=== PATIENT | female | born 1955 | race Caucasian/White ===

== ENCOUNTER 2019-12-24 13:05 | Outpatient (REF) | payer MEDICARE, MEDICAID, SELFPAY ==
--- NOTE | 2019-12-24 13:07 | MR_ITS ---
EXAMINATION: MRI ABDOMEN WITH AND WITHOUT CONTRAST CLINICAL INFORMATION: ADRENAL ADENOMA, UNSPEC LATERALITY, ASSESS B/L ADRENALS COMPARISON: Directly compared to the 09/05/2019 CT scan TECHNIQUE: Multiple routine MRI sequences through the abdomen were obtained on a high-field 1.5Tesla MRI. Pre-and postcontrast images with 5.5 mL of Gadavist intravenous contrast were obtained. This included a dynamic contrast-enhanced technique. Images are degraded by patient's difficulty with breath-holding resulting in motion artifact on most of the sequences FINDINGS: Visualized lung bases are unremarkable although only partially seen on the study. T2 bright cysts are seen in posterior segment 7 of the liver and anterior segment 3 of the liver. These do not demonstrate any significant enhancement. No suspicious hepatic lesion. Visualized pancreas and spleen are unremarkable. There is oval fullness to the right adrenal gland measuring 2.2 x 1.4 cm in size. Unfortunately this does not demonstrate any significant signal loss on out of phase imaging to suggest intra-Voxel fat. Contralateral left adrenal gland is full but again without significant signal dropout. T2 bright nonenhancing cyst in the lower pole of the right kidney. On the large [id number] localizing image there is a suggestion of a multi fibroid uterus partially seen. MR/MR abdomen wo/w con IMPRESSION: The right adrenal nodule has not significantly changed in size when compared to the prior CT scans. Unfortunately this does not demonstrate any significant signal loss on the out of phase imaging and does not satisfy MRI criteria for a lipid rich adrenal adenoma. Lipid poor adrenal adenoma could still have this appearance and dedicated dynamic CT scan of the adrenals may be helpful. There is mild fullness to the left adrenal gland but this is nonspecific. Incidental hepatic and right renal cyst noted.
[2019-12-24 14:10] LABS: Blood Urea Nitrogen 15 mg/dL (9-16); Estimated Glomerular Filt Rate > 60
== END 2019-12-24 13:06 | disposition home or self-care (01) ==
LOC: HO.MRI 13:05
PROVIDERS: Internal Medicine; PCP Internal Medicine; Visit Provider Family Medicine Adult Medicine
DX: D35.02 Benign neoplasm of left adrenal gland (principal); D35.01 Benign neoplasm of right adrenal gland; Z00.00 Encounter for general adult medical examination without abnormal findings
CPT/HCPCS: 74183; 82565; 84520; A9585

== ENCOUNTER → 2019-12-25 13:39 | Outpatient (BNVA) | payer MEDICARE, MEDICAID, SELFPAY | PROVIDERS: PCP Internal Medicine; Referring Provider Internal Medicine; Visit Provider Hospitalist | DX: J44.9 Chronic obstructive pulmonary disease, unspecified (principal); G47.33 Obstructive sleep apnea (adult) (pediatric); R01.1 Cardiac murmur, unspecified; Z86.73 Personal history of transient ischemic attack (TIA), and cerebral infarction without residual deficits; Z23 Encounter for immunization | CPT/HCPCS: 90471; 90686; 99212 ==

== ENCOUNTER 2020-01-14 21:05 | Inpatient (IN) | payer MEDICARE, MEDICAID, SELFPAY ==
[2020-01-14 21:07] VITALS: BP 266/139; PULSE 109; RESP 24; O2SAT 99; BMI 29.8
--- NOTE | 2020-01-14 21:15 | PC.NURSE ---
triage amended. family now reporting that she had slurred speech at 2100. reported after completing triage note. neuro exam abnormal but otherwise baseline per family member. Called back and notified battery charger.
--- NOTE | 2020-01-14 21:23 | ECG_ITS ---
Test Reason : STROKE Blood Pressure : / mmHG Vent. Rate : 087 BPM Atrial Rate : 087 BPM P-R Int : 154 ms QRS Dur : 078 ms QT Int : 434 ms P-R-T Axes : 033 -19 035 degrees QTc Int : 522 ms Normal sinus rhythm Possible Left atrial enlargement Left ventricular hypertrophy Cannot rule out Septal infarct (cited on or before 14-JAN-2020) Prolonged QT Abnormal ECG When compared with ECG of 14-JAN-2020 22:34, Premature ventricular complexes are no longer Present Questionable change in initial forces of Septal leads Referred By: Kassidy Cedeno Electronically Signed By:TRISTIAN HENRIQUEZ MD
--- NOTE | 2020-01-14 21:23 | CT_ITS ---
EXAMINATION: CT HEAD WITHOUT CONTRAST (STROKE PROTOCOL) CLINICAL INFORMATION: Stroke protocol. COMPARISON: CT head 04/08/2019 TECHNIQUE: Contiguous axial imaging was performed from the skull base to vertex without intravenous administration of contrast. This CT examination was performed using dose optimization techniques as appropriate, variously including the following: *Automated exposure control *Adjustment of mA and/or kV according to patient size (this includes techniques or standardized protocols for targeted exams where dose is matched to indication/reason for exam; i.e. extremities or head) *Use of iterative reconstruction technique DLP: 682 mGy-cm FINDINGS: There is no evidence of acute intracranial hemorrhage or territorial infarction. No abnormal mass effect or midline shift is seen. No extra-axial fluid collections are identified. There is a chronic infarct in the right cerebellar hemisphere inferiorly. There is a chronic infarct in left gangliocapsular structures with ex vacuo dilatation of the body of the left lateral ventricle. Moderate chronic white matter microangiopathic changes noted. There is ex vacuo dilatation of the ventricles with moderate generalized parenchymal volume loss. The osseous structures and soft tissues are normal. The mastoid air cells and visualized portions of the paranasal sinuses are well aerated. CT/CT head for stroke IMPRESSION: No acute intracranial pathology. This critical result was discussed with Kassidy Orona 01/14/2020, 9:43 PM. It was ascertained that the content and urgency of the report was understood at the time of direct communication.
--- NOTE | 2020-01-14 21:24 | CT_ITS ---
EXAMINATION: CT ANGIOGRAM HEAD CT ANGIOGRAM NECK CLINICAL INFORMATION: Large vessel occlusion. Stroke. COMPARISON: CT head from 01/14/2020. TECHNIQUE: Initial noncontrast intelligence consultant imaging of the head and neck was performed. Comparison is made with noncontrast head CT from earlier today. Test bolus sequences followed by intravenous administration 70 mL of Omnipaque 350. Helical imaging was performed in the axial plane from the aortic arch to the skull vertex. Delayed postcontrast imaging of the head was also performed. The data was processed at the lead nuclear medicine technologist's workstation for generation of MIP sequences. Angled MIPs and volume rendered reformatted images were also generated at an offline 3D workstation. Stenoses are assessed in accordance with NASCET criteria unless otherwise indicated. DLP: 1392 mGy-cm FINDINGS: CT Head: There is no evidence of acute intracranial hemorrhage or edematous territorial infarction. Chronic encephalomalacia of the left centrum semiovale/ragland radiata and right cerebellar hemisphere. Chronic lacunar infarcts of the left caudate head, lentiform nucleus, and thalamus. A few foci of hypoattenuation in the periventricular and deep white matter are consistent with mild microangiopathy. Pedraza-white matter differentiation is preserved. Ex vacuo dilatation of the left lateral ventricle. Otherwise, proportional prominence of the ventricles and sulcal spaces without evidence of obstructive hydrocephalus. No abnormal mass effect or midline shift. No extra-axial fluid collections. No pathologic intra-axial enhancement or regional oligemia. No acute soft tissue or osseous abnormalities. Mild mucosal thickening of the paranasal sinuses. Rightward nasal septal deviation. The mastoid air cells and middle ear cavities remain well aerated. Periapical lucencies associated with the bilateral maxillary molars and mandibular right-sided molars. CT Neck: The thyroid gland and remaining cervical soft tissues are within normal limits. Moderate multilevel degenerative spondyloarthropathy of the cervical spine. There is moderate degenerative disc disease at C4-C5 and C5-C6 with disc-osteophyte complexes. Facet and uncovertebral joint arthropathy leads to osseous encroachment on the neural foramina at C4-C5 and C5-C6. CT Upper Chest: The visualized lung apices and upper mediastinum are within normal limits. Neck CTA: Exam is moderately motion degraded. Aortic Arch: Normal contour and caliber with mild calcific atherosclerotic. Classic 3 vessel branching pattern of the aortic arch. Great Vessel Origins: No significant stenosis of the branch origins. Right Common Carotid Artery: Normal opacification without focal stenosis or occlusion. Cervical Right Internal Carotid Artery: Mild calcific atherosclerotic disease of the carotid bulb and proximal internal carotid artery without flow-limiting stenosis. The cervical segment of the right MARY is patent but diminutive relative to the contralateral side. Left Common Carotid Artery: Normal opacification without focal stenosis or occlusion. Cervical Left Internal Carotid Artery: Mild calcific atherosclerotic disease of the carotid bulb and proximal internal carotid artery without flow-limiting stenosis. Cervical Right Vertebral Artery: Calcific atherosclerotic disease causes moderate stenosis of the origin. The V2 and V3 segments are relatively diminutive but otherwise normally opacified. Cervical Left Vertebral Artery: Dominant. Calcific atherosclerotic disease causes moderate stenosis of the origin. Otherwise, normal opacification without focal stenosis or occlusion. Brain CTA: Intracranial Internal Carotid Arteries: Calcific atherosclerotic disease of the intracranial internal carotid arteries bilaterally. Moderate irregularity of the petrous segment of the right MARY. Moderate to high-grade stenosis of the cavernous and paraophthalmic segment of the right ICA. Relative reconstitution of the supraclinoid segment of the right ICA. Calcific atherosclerotic disease causes mild to moderate narrowings of the intracranial left ICA (most notable stenosis of the paraophthalmic segment). 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 Right Anterior Cerebral Artery: Mild irregularity of the A1 segment. There appears to be mild to moderate small vessel collateralization along the distal branches. Otherwise, relatively normal opacification of the distal segments of the MARY. Left Anterior Cerebral Artery: Mild irregularity of the A1 segment. There appears to be mild to moderate small vessel collateralization along the distal branches. Otherwise, relatively normal opacification of the distal segments of the MRAY. Anterior Communicating Artery: Normal. Right Middle Cerebral Artery: Mild to moderate irregularity of the M1 segment without occlusion. Mild irregularity of the distal branches. Left Middle Cerebral Artery: Mild to moderate irregularity of the M1 segment without occlusion. Mild irregularity of the distal branches. Right Vertebral Artery: Multifocal high-grade narrowings of the V4 segment. Relatively normal opacification of the proximal segments of the posterior inferior cerebellar artery. Left Vertebral Artery: The proximal V4 segment demonstrates mild narrowings but is otherwise normally opacified. Moderate to high-grade stenosis of the distal V4 segment. The posterior inferior cerebellar artery is not well opacified; however, there is no CT evidence of acute occlusion. Basilar Artery: High-grade stenosis of the proximal basilar artery. Mild irregularity of the mid and distal basilar artery. Normal appearance of the proximal superior cerebellar arteries. Right Posterior Cerebral Artery: Mild to moderate irregularity of the P1 segment. The distal segments remain opacified with mild irregularity. Left Posterior Cerebral Artery: Moderate irregular narrowing of the P1 segment. Moderate irregular narrowing of the P2 segment. The distal branches remain opacified with mild irregularity. Normal opacification of the superior sagittal, straight, transverse, and sigmoid sinuses. CT/CT angio head neck stroke IMPRESSION: 1. No evidence of acute intracranial hemorrhage or edematous territorial infarction. 2. Chronic encephalomalacia of the left greater than right centrum semiovale/ragland radiata and right cerebellar hemisphere. Chronic lacunar infarcts of the left-sided deep nuclei. 3. CTA of the head and neck without proximal occlusion. However, there are multifocal moderate to high-grade irregular narrowings of the anterior and posterior circulation. In the neck, there are moderate stenoses of the origins of the vertebral arteries. Intracranially, there are moderate to high-grade stenoses of the right greater than left ICAs. Mild to moderate irregular narrowings of the A1 and M1 segments bilaterally. Moderate to high-grade irregular narrowings of the bilateral vertebral and proximal basilar arteries. Moderate irregular narrowings of the left greater than right P1 and P2 segments. Overall, findings are suspicious for advanced intracranial atherosclerotic disease that would be prone to perfusion insufficiencies in the setting of blood pressure changes. 4. 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 This critical result was discussed with Dr. Cedeno at 22:25 on 01/14/2020 and it was ascertained that the content and urgency of the report was understood at the time of direct communication.
--- NOTE | 2020-01-14 21:27 | ED_ITS ---
HPI - General Adult General Chief complaint: General Medical Stated complaint: hi bp Time Seen by Provider: 01/14/20 21:22 Related Data Home Medications Medication Instructions Recorded Confirmed amlodipine 5 mg tablet 5 mg PO DAILY 12/25/19 12/25/19 aspirin 81 mg tablet,delayed 81 mg PO DAILY 12/25/19 12/25/19 release atorvastatin 20 mg tablet 20 mg PO DAILY 12/25/19 12/25/19 carvedilol 12.5 mg tablet 12.5 mg PO BID 12/25/19 12/25/19 dexamethasone 1 mg tablet 1 mg PO BEDTIME 12/25/19 12/25/19 dextran 70-hypromellose (PF) 0.1 drp OPHTHALMIC (EYE) 12/25/19 12/25/19 %-0.3 % eye drops in a dropperette furosemide 20 mg tablet 20 mg PO DAILY 12/25/19 12/25/19 hydralazine 50 mg tablet 50 mg PO BID 12/25/19 12/25/19 ipratropium 0.5 mg-albuterol 3 mg 3 ml INHALATION Q6H 12/25/19 12/25/19 (2.5 mg base)/3 mL nebulization soln isosorbide mononitrate 30 mg 30 mg PO QAM 12/25/19 12/25/19 tablet,extended release 24 hr losartan 100 mg tablet 100 mg PO DAILY 12/25/19 12/25/19 Allergies Allergy/AdvReac Type Severity Reaction Status Date / Time No Known Allergies Allergy Verified 12/25/19 14:03 [No Known Allergies*] [facility] Past Medical History Medical History (Updated 12/25/19 @ 14:28 by Stefan Beckman MD) COPD (chronic obstructive pulmonary disease) CVA (cerebral vascular accident) Murmur, cardiac YANI (obstructive sleep apnea) Social History Social History (Updated 12/25/19 @ 14:02 by Juli Falcon MA) Smoking Status: Never smoker Advance Directives: No Advance Directives Information Provided: No Physical Exam Vital Signs: Vital Signs: Last Vital Signs Pulse 109 H 01/14/20 21:07 Resp 24 H 01/14/20 21:07 BP 266/139 H 01/14/20 21:07 Pulse Ox 99 01/14/20 21:07 Body Mass Index 29.8 NIH Stroke Scale Internal: Initial- Upon Arrival Level of Consciousness: Alert Level of Consciousness Commands: Performs both tasks correctly Visual: No visual loss Facial Palsy: Minor paralyis Motor Arm (Right): No drift Motor Arm (Left): No drift Motor Leg (Right): No drift Motor Leg (Left): No drift Limb Ataxia: Present in one limb Discharge Plan Discharge Prescriptions: No Action dexamethasone 1 mg tablet 1 mg PO BEDTIME RF: 0 losartan 100 mg tablet 100 mg PO DAILY RF: 0 furosemide 20 mg tablet 20 mg PO DAILY RF: 0 amlodipine 5 mg tablet 5 mg PO DAILY RF: 0 isosorbide mononitrate 30 mg tablet extended release 24 hr 30 mg PO QAM RF: 0 carvedilol 12.5 mg tablet 12.5 mg PO BID RF: 0 atorvastatin 20 mg tablet 20 mg PO DAILY RF: 0 aspirin 81 mg tablet,delayed release (DR/EC) 81 mg PO DAILY RF: 0 ipratropium-albuterol 0.5 mg-3 mg(2.5 mg base)/3 mL solution for nebulization 3 ml inhalation Q6H RF: 0 Bion Tears (PF) 0.1-0.3 % dropperette ophthalmic (eye) RF: 0 hydralazine 50 mg tablet 50 mg PO BID RF: 0
[2020-01-14 21:32] LABS: Glucose, Whole Blood 194 mg/dL (60-115)
--- NOTE | 2020-01-14 21:38 | ED.NEUROSD ---
HPI - Neuro Symptoms/Deficit General Chief Complaint: General Medical Stated Complaint: hi bp Time Seen by Provider: 01/14/20 21:22 Source: family ( Daughter) and diplomatic interpreter/translator Mode of arrival: wheelchair Limitations: physical limitation History of Present Illness HPI Narrative: This is a 64-year-old female with significant past medical history of 5 strokes in [place], the last of which was approximately 1 year ago patient came [place] the [place] living with her family. The daughter states that approximately 8:20 p.m. this evening the patient took her blood pressure, which she checks 3 times a day, and was noted to be 180s/116. as per the daughter the patient had been directed that if she was noted to have a high blood pressure she should take her hydralazine, however the daughter was scared and instead gave the patient her scheduled carvedilol 12.5 mg and noted that at 8:40 p.m. patient began having stroke-like symptoms with noted left-sided weakness and eyelid droop. As per the daughter the patient is not on any blood thinners, and is only taking aspirin. Related Data Home Medications Medication Instructions Recorded Confirmed amlodipine 5 mg tablet 5 mg PO DAILY 12/25/19 01/14/20 aspirin 81 mg tablet,delayed 81 mg PO DAILY 12/25/19 01/14/20 release atorvastatin 20 mg tablet 20 mg PO DAILY 12/25/19 01/14/20 carvedilol 12.5 mg tablet 12.5 mg PO BID 12/25/19 01/14/20 dexamethasone 1 mg tablet 1 mg PO BEDTIME 12/25/19 01/14/20 dextran 70-hypromellose (PF) 0.1 1 drp OPHTHALMIC (EYE) QID 12/25/19 01/14/20 %-0.3 % eye drops in a dropperette furosemide 20 mg tablet 20 mg PO DAILY 12/25/19 01/14/20 hydralazine 50 mg tablet 50 mg PO BID 12/25/19 01/14/20 ipratropium 0.5 mg-albuterol 3 mg 3 ml INHALATION Q6H 12/25/19 01/14/20 (2.5 mg base)/3 mL nebulization soln isosorbide mononitrate 30 mg 30 mg PO QAM 11/12/20 12/02/20 tablet,extended release 24 hr losartan 100 mg tablet 100 mg PO DAILY 12/25/19 01/14/20 Allergies Allergy/AdvReac Type Severity Reaction Status Date / Time No Known Allergies Allergy Verified 12/25/19 14:03 [No Known Allergies*] Review of Systems Review of Systems: Pertinent positives and negatives as stated in HPI. [facility] Past Medical History Medical History (Updated 01/14/20 @ 22:39 by Kassidy Cedeno MD) COPD (chronic obstructive pulmonary disease) CVA (cerebral vascular accident) Murmur, cardiac YANI (obstructive sleep apnea) Social History Social History (Updated 12/25/19 @ 14:02 by Juli Falcon MA) Alcohol intake: never Smoking Status: Never smoker Use of substances other than those prescribed or required for medical reasons: No Advance Directives: No Advance Directives Information Provided: No Physical Exam Vital Signs: Vital Signs: Last Vital Signs Pulse 96 01/15/20 00:00 Resp 20 01/15/20 00:00 BP 164/94 H 01/15/20 00:00 Pulse Ox 98 01/15/20 00:00 Body Mass Index 29.8 VITAL SIGNS: Reviewed. GENERAL: Well developed, well nourished, in no acute distress. HEAD: Normocephalic/atraumatic, EYES: PERRLA, EOMI intact without pain, no nystagmus/pallor/icterus noted EARS: Ext canals without abnormality, TMs non-bulging and non-erythematous NOSE: Nares patent bilateral OROPHARYNX: no oral lesions noted, posterior pharynx clear and non-erythematous without noted tonsillar enlargement/erythema/exudates NECK: Supple, no adenopathy LUNGS: Normal breath sounds. No adventitious sounds or accessory muscle use. SpO2<97> CARDIOVASCULAR: Regular rate and rhythm without noted murmurs, no JVD or lower extremity edema. ABDOMEN: Soft, non-tender, non-distended with bowel sounds. No rigidity. No guarding. No palpable masses or hernias noted MUSCULOSKELETAL: No tenderness, deformities, or effusions noted on gross inspection. EXTREMITIES: No cyanosis, clubbing or edema. SKIN: Inspection of the skin reveals no rashes, ulcerations, jaundice, pallor, or petechiae. NEUROLOGIC: Alert please see NIH stroke scale Course Course Course Narrative: This is a 64-year-old female with history and clinical presentation most consistent with likely hypertensive emergency with concomitant neurologic symptoms, however we did work the patient up as a code stroke. On review of all investigations there is no evidence for infection or anemia, no electrolyte abnormalities noted and TSH is within normal limits. Although high sensitivity troponin is noted to be 131 this is likely secondary to her hypertensive emergency as well. Patient will get a 2nd troponin at the 3 hour seamus and currently denies any chest pain and on review EKG although there are noted J-point elevations in V1 /V2 /V3 on repeat EKG these have resolved quite inciting with reduction patient's blood pressure. Chest x-ray is without acute abnormalities and COVID-19 testing is negative. The blood pressure was able to be gradually controlled with a 1 time dose of 5 mg of labetalol, the report on the CTA of head and neck is pretty significant for diffuse atherosclerotic disease affecting bilateral vertebral arteries as well as significant affect on the posterior circulation, so will not attempt to lower blood pressure less than 180s systolic. All this plan was discussed with Dr. Roberts as well. This case was discussed with the inpatient hospitalist who is agreeable for admission. Reevaluation(s) Reevaluation #1: CT head is negative, CTA results are pending, will not allow permissive hypertension at this time because strong suspicion that patient's symptoms are secondary to blood pressure. Time: 21:49 Reevaluation #2: I discussed case with Dr. Roberts who agrees that this is most consistent with hypertensive emergency. No recommendation for tPA. Time: 10:05 MDM - Neuro Symptoms/Deficit Lab Data Result diagrams: 01/14/20 22:30 01/14/20 22:31 Labs: Lab Results 01/14/20 01/14/20 01/14/20 Range/Units 21:23 21:27 22:30 WBC 9.8 (4.8-10.8) X10*3/uL RBC 5.49 (4.20-5.50) X10*6/uL Hgb 13.7 (12.0-16.0) g/dl Hct 43.5 (37-47) % MCV 79.2 L (80-98) fL MCH 25.0 L (27.0-33.0) pg MCHC 31.5 (31.0-35.0) g/dl RDW 14.8 (11.0-16.0) % Plt Count 203 (160-400) X10*3/uL MPV 12.5 H (9.4-12.3) fL Immature Gran % (Auto) 0.2 (0.0-0.4) % Neut % (Auto) 72.9 (45-73) % Lymph % (Auto) 17.8 L (20-40) % [place] % (Auto) 5.5 (2-11) % Eos % (Auto) 2.9 (0-4) % Baso % (Auto) 0.7 (0-2) % Lymph # (Auto) 1.8 (1.2-4.9) X10*3/uL [place] # (Auto) 0.5 (0.1-1.2) X10*3/uL Eos # (Auto) 0.3 (0.0-0.4) X10*3/uL Baso # (Auto) 0.1 (0.0-0.2) X10*3/uL Abs Immat Gran (auto) 0.02 (0.00-0.03) X10*3/uL Absolute Neuts (auto) 7.2 (2.0-8.3) X10*3/uL Absolute Nucleated RBC 0.000 (0.0-0.012) X10*3/uL Nucleated RBC % (auto) 0.0 (0.0-0.2) /100WBC PT (10.8-13.0) SEC Whole Blood PT 12.4 (11.1-13.5) sec INR (0.9-1.1) Whole Blood INR 1.0 (0.9-1.1) APTT (24.1-38.0) SEC Sodium (135-145) mmol/L Potassium (3.3-5.1) mmol/l Chloride (96-108) mmol/L Carbon Dioxide (22-29) mmol/L Anion Gap (12-20) BUN (9-16) mg/dL Creatinine (0.5-1.4) mg/dL Estim Creat Clear Calc Estimated GFR POC Glucose 194 H (60-115) mg/dL Random Glucose (60-115) mg/dL Calcium (8.4-10.2) mg/dL Magnesium (1.6-2.6) mg/dL Total Creatine Kinase (26-140) U/L Troponin I High Sens (<3.5-17.0) ng/L TSH (0.32-4.0) uIU/mL Coronavirus (PCR) (Negative) Influenza Type A (PCR) (Negative) Influenza Type B (PCR) (Negative) RSV RNA Qual (PCR) (Negative) 01/14/20 01/14/20 01/14/20 Range/Units 22:30 22:31 22:31 WBC (4.8-10.8) X10*3/uL RBC (4.20-5.50) X10*6/uL Hgb (12.0-16.0) g/dl Hct (37-47) % MCV (80-98) fL MCH (27.0-33.0) pg MCHC (31.0-35.0) g/dl RDW (11.0-16.0) % Plt Count (160-400) X10*3/uL MPV (9.4-12.3) fL Immature Gran % (Auto) (0.0-0.4) % Neut % (Auto) (45-73) % Lymph % (Auto) (20-40) % [place] % (Auto) (2-11) % Eos % (Auto) (0-4) % Baso % (Auto) (0-2) % Lymph # (Auto) (1.2-4.9) X10*3/uL [place] # (Auto) (0.1-1.2) X10*3/uL Eos # (Auto) (0.0-0.4) X10*3/uL Baso # (Auto) (0.0-0.2) X10*3/uL Abs Immat Gran (auto) (0.00-0.03) X10*3/uL Absolute Neuts (auto) (2.0-8.3) X10*3/uL Absolute Nucleated RBC (0.0-0.012) X10*3/uL Nucleated RBC % (auto) (0.0-0.2) /100WBC PT 11.7 (10.8-13.0) SEC Whole Blood PT (11.1-13.5) sec INR 1.0 (0.9-1.1) Whole Blood INR (0.9-1.1) APTT 34.4 (24.1-38.0) SEC Sodium 138 (135-145) mmol/L Potassium 3.8 (3.3-5.1) mmol/l Chloride 105 (96-108) mmol/L Carbon Dioxide 24 (22-29) mmol/L Anion Gap 13 (12-20) BUN 18 H (9-16) mg/dL Creatinine 0.87 (0.5-1.4) mg/dL Estim Creat Clear Calc 61.5 Estimated GFR > 60 POC Glucose (60-115) mg/dL Random Glucose 171 H (60-115) mg/dL Calcium 8.8 (8.4-10.2) mg/dL Magnesium 1.9 (1.6-2.6) mg/dL Total Creatine Kinase 36 (26-140) U/L Troponin I High Sens (<3.5-17.0) ng/L TSH 1.19 (0.32-4.0) uIU/mL Coronavirus (PCR) (Negative) Influenza Type A (PCR) (Negative) Influenza Type B (PCR) (Negative) RSV RNA Qual (PCR) (Negative) 01/14/20 01/14/20 Range/Units 22:31 22:31 WBC (4.8-10.8) X10*3/uL RBC (4.20-5.50) X10*6/uL Hgb (12.0-16.0) g/dl Hct (37-47) % MCV (80-98) fL MCH (27.0-33.0) pg MCHC (31.0-35.0) g/dl RDW (11.0-16.0) % Plt Count (160-400) X10*3/uL MPV (9.4-12.3) fL Immature Gran % (Auto) (0.0-0.4) % Neut % (Auto) (45-73) % Lymph % (Auto) (20-40) % [place] % (Auto) (2-11) % Eos % (Auto) (0-4) % Baso % (Auto) (0-2) % Lymph # (Auto) (1.2-4.9) X10*3/uL [place] # (Auto) (0.1-1.2) X10*3/uL Eos # (Auto) (0.0-0.4) X10*3/uL Baso # (Auto) (0.0-0.2) X10*3/uL Abs Immat Gran (auto) (0.00-0.03) X10*3/uL Absolute Neuts (auto) (2.0-8.3) X10*3/uL Absolute Nucleated RBC (0.0-0.012) X10*3/uL Nucleated RBC % (auto) (0.0-0.2) /100WBC PT (10.8-13.0) SEC Whole Blood PT (11.1-13.5) sec INR (0.9-1.1) Whole Blood INR (0.9-1.1) APTT (24.1-38.0) SEC Sodium (135-145) mmol/L Potassium (3.3-5.1) mmol/l Chloride (96-108) mmol/L Carbon Dioxide (22-29) mmol/L Anion Gap (12-20) BUN (9-16) mg/dL Creatinine (0.5-1.4) mg/dL Estim Creat Clear Calc Estimated GFR POC Glucose (60-115) mg/dL Random Glucose (60-115) mg/dL Calcium (8.4-10.2) mg/dL Magnesium (1.6-2.6) mg/dL Total Creatine Kinase (26-140) U/L Troponin I High Sens 131.0 H (<3.5-17.0) ng/L TSH (0.32-4.0) uIU/mL Coronavirus (PCR) NEGATIVE (Negative) Influenza Type A (PCR) NEGATIVE (Negative) Influenza Type B (PCR) NEGATIVE (Negative) RSV RNA Qual (PCR) NEGATIVE (Negative) ECG Data Attestation: I personally reviewed and interpreted this ECG as follows: Prior ECG tracings: not available for review Interpretation: Sinus rhythm with occasional PVCs, HR -94, there are mild J-point elevations in V1 /V2 /V3, OR/QRS is within normal limits, QTC is noted to be prolonged. On repeat EKG at 2430: Normal sinus rhythm, HR- 87, these elevations in V1 /V2 /V3 have completely resolved, QTC remains prolonged at 520 to with OR/QRS within normal limits NIH Stroke Scale Internal: Initial- Upon Arrival Level of Consciousness: Alert Level of Consciousness Questions: Answers one question correctly Level of Consciousness Commands: Performs both tasks correctly Best Gaze: Normal Visual: No visual loss Facial Palsy: Minor paralyis ( Baseline on discussion with daughter) Motor Arm (Right): Drift ( baseline on discussion with daughter) Motor Arm (Left): No drift Motor Leg (Right): Drift ( baseline on discussion with daughter) Motor Leg (Left): No drift Limb Ataxia: Present in two limbs ( unilateral, right on discussion with daughter) Sensory: Normal Best Language: No aphasia Dysarthia: Mild to moderate dysarthria ( baseline on discussion with daughter) Extinction and Inattention: No abnormality Score: 7 Discharge Plan Discharge Clinical Impression: Hypertensive emergency, no CHF Patient Disposition: Admitted As Inpatient Interventions: Admission Worksheet (ED) Last Done: 01/15/20 01:02
[2020-01-14] MEDS: iohexoL 350 MG/ML 100 ML INFUS..BTL IV (21:54)
[2020-01-14 21:59] LABS: Prothrombin Time Whole Bld POC 12.4 sec (11.1-13.5)
[2020-01-14] MEDS: Labetalol HCL 100 MG/20 ML VIAL IVPUSH (22:03)
[2020-01-14 22:05] VITALS: BP 228/142; PULSE 93; RESP 18; O2SAT 7
[2020-01-14 22:08] VITALS: BP 225/127; PULSE 96; RESP 16; O2SAT 97
[2020-01-14 22:19] VITALS: PULSE 94
[2020-01-14 22:38] LABS: Basophils Absolute Auto 0.1 X10*3/uL (0.0-0.2); Basophils Percent Auto 0.7 % (0-2); Eosinophils Absolute Auto 0.3 X10*3/uL (0.0-0.4); Eosinophils Percent Auto 2.9 % (0-4); Hematocrit 43.5 % (37-47); Hemoglobin 13.7 g/dl (12.0-16.0); Imm Gran Abs Auto 0.02 X10*3/uL (0.00-0.03); Imm Gran Pct Auto 0.2 % (0.0-0.4); Lymphocytes Absolute Auto 1.8 X10*3/uL (1.2-4.9); Lymphocytes Percent Auto 17.8 % (20-40); MANUAL DIFF FLAG NO; Mean Corpuscular HGB Conc 31.5 g/dl (31.0-35.0); Mean Corpuscular Volume 79.2 fL (80-98); Mean Platelet Volume 12.5 fL (9.4-12.3); Monocytes Absolute Auto 0.5 X10*3/uL (0.1-1.2); Monocytes Percent Auto 5.5 % (2-11); Neutrophils Absolute Auto 7.2 X10*3/uL (2.0-8.3); Neutrophils Percent Auto 72.9 % (45-73); Platelet Count 203 X10*3/uL (160-400); Red Blood Count 5.49 X10*6/uL (4.20-5.50); Red Cell Distribution Width 14.8 % (11.0-16.0); White Blood Count 9.8 X10*3/uL (4.8-10.8)
[2020-01-14 22:45] LABS: Prothrombin Time 11.7 SEC (10.8-13.0)
[2020-01-14 22:47] LABS: Partial Thromboplastin Time 34.4 SEC (24.1-38.0)
[2020-01-14 22:59] LABS: Magnesium 1.9 mg/dL (1.6-2.6)
[2020-01-14 23:00] LABS: Anion Gap 13 (12-20); Blood Urea Nitrogen 18 mg/dL (9-16); Calcium 8.8 mg/dL (8.4-10.2); Carbon Dioxide 24 mmol/L (22-29); Chloride 105 mmol/L (96-108); Creatinine Clr Calc Pharmacy 61.5; Estimated Glomerular Filt Rate > 60; Glucose Random 171 mg/dL (60-115); Potassium 3.8 mmol/l (3.3-5.1); Sodium 138 mmol/L (135-145)
--- NOTE | 2020-01-14 23:01 | XR_ITS ---
EXAMINATION: XR CHEST CLINICAL INFORMATION: Cough COMPARISON: CT chest 04/08/2019 TECHNIQUE: Frontal portable view of the chest was obtained. 11:01 PM FINDINGS: No significant abnormality is noted involving the heart, lungs, mediastinum, bony thorax or soft tissues. XR/XR chest 1V IMPRESSION: Unremarkable examination.
[2020-01-14 23:15] LABS: Influenza A PCR NEGATIVE (Negative); Influenza B PCR NEGATIVE (Negative); Resp Syncy Virus RNA Qual PCR NEGATIVE (Negative); SARS COV2 PCR INHOUSE NEGATIVE (Negative)
[2020-01-14 23:20] LABS: Thyroid Stimulating Hormone 1.19 uIU/mL (0.32-4.0)
[2020-01-14 23:26] LABS: Stroke Lab Use COMPLETE
[2020-01-15] VITALS (16 sets, daily range): BP systolic 96–197; BP diastolic 60–99; PULSE 76–96; RESP 16–20; TEMP 35.8–36.7; O2SAT 95–98; BMI 25.9
--- NOTE | 2020-01-15 00:20 | ECG_ITS ---
Test Reason : STROKE ALERT Blood Pressure : / mmHG Vent. Rate : 094 BPM Atrial Rate : 094 BPM P-R Int : 156 ms QRS Dur : 080 ms QT Int : 412 ms P-R-T Axes : 033 -16 047 degrees QTc Int : 515 ms Sinus rhythm with occasional Premature ventricular complexes Possible Left atrial enlargement Left ventricular hypertrophy Cannot rule out Septal infarct , age undetermined Prolonged QT Abnormal ECG No previous ECGs available Referred By: Kassidy Cedeno Electronically Signed By:TRISTIAN HENRIQUEZ MD
--- NOTE | 2020-01-15 01:21 | PM.IMHP ---
History of Present Illness Date of Service: 01/15/20 Chief Complaint: elevated BP 64 y/o female who presented from home due to elevated BP . Per history provided by the patient and patient's daughter. Today around 8 pm patient was noted to have a reading on BP monitor of 266/60 mmHg for what decision to come to the ED was made. On presentation patient had a STAT CT followed by a CTA head and neck which were negative for an acute intracranial pathology, it is evident significant stenosis and atherosclerosis disease in the posterior circulation of the brain. Vitals at presentation 260/130 mmHg and 109 bpm. Patient was given a total of 3 doses of IV labetalol with improvement of BP to 160/94 and pulse of 96. Initial EKG showed no evidence of any acute ST T wave changes, prolonged QT. Patient given 1 mg IV of magnesium. Neurology was contacted per ED Dr Roberts who does not recommends any further intervention for neurology point of view. Patient has a hx of stroke in the past with right sided hemiparesis and dysarthria. NIH scale on presentation of 7. Decision for admission given for Hypertensive Emergency. Patient was seen and evaluated at the bedside, laying down in bed in no acute distress. Asymptomatic. Denies any chest pain, SOB, nausea, vomiting or fever. BP noted to be 201/90 mmHg. One dose of amlodipine and hydralazine home meds to be given now PO. ROS as above otherwise negative. Physical exam positive for right sided hemiparesis and dysarthria which is patient's baseline. PMHX: HTN, HLP, CVA, YANI, COPD, CHF PSx: none Toxic habits: No hx of alcohol abuse, smoking or IVDA Review of Systems Review of Systems: Yes all other systems are reviewed and are negative [facility] Medical History COPD (chronic obstructive pulmonary disease) CVA (cerebral vascular accident) Murmur, cardiac YANI (obstructive sleep apnea) Functional capacity: independent ambulation Social History Alcohol intake: never Smoking Status: Never smoker Use of substances other than those prescribed or required for medical reasons: No Advance Directives: No Advance Directives Information Provided: No Meds Allergies Allergy/AdvReac Type Severity Reaction Status Date / Time No Known Allergies Allergy Verified 12/25/19 14:03 [No Known Allergies*] Home Medications Medication Instructions Recorded Confirmed Type amlodipine 5 mg tablet 5 mg PO DAILY 12/25/19 01/14/20 History aspirin 81 mg tablet,delayed 81 mg PO DAILY 12/25/19 01/14/20 History release atorvastatin 20 mg tablet 20 mg PO DAILY 12/25/19 01/14/20 History carvedilol 12.5 mg tablet 12.5 mg PO BID 12/25/19 01/14/20 History dexamethasone 1 mg tablet 1 mg PO BEDTIME 12/25/19 01/14/20 History dextran 70-hypromellose (PF) 0.1 1 drp OPHTHALMIC (EYE) QID 12/25/19 01/14/20 History %-0.3 % eye drops in a dropperette furosemide 20 mg tablet 20 mg PO DAILY 12/25/19 01/14/20 History hydralazine 50 mg tablet 50 mg PO BID 12/25/19 01/14/20 History ipratropium 0.5 mg-albuterol 3 mg 3 ml INHALATION Q6H 12/25/19 01/14/20 History (2.5 mg base)/3 mL nebulization soln isosorbide mononitrate 30 mg 30 mg PO QAM 12/25/19 01/14/20 History tablet,extended release 24 hr losartan 100 mg tablet 100 mg PO DAILY 12/25/19 01/14/20 History Physical Exam Vital Signs and Narrative: Vital Signs: Last Vital Signs Pulse 96 01/15/20 00:00 Resp 20 01/15/20 00:00 BP 164/94 H 01/15/20 00:00 Pulse Ox 98 01/15/20 00:00 Body Mass Index 29.8 Const: General: cooperative and comfortable Orientation/consciousness: oriented to person, oriented to place and oriented to time HENMT: Head: Yes normal to inspection Eyes: General: appearance normal, both eyes and all related structures Neck: Yes normal visual inspection Chest: Chest palpation & inspection: normal inspection of the chest Resp: Effort & Inspection: normal respiratory effort Auscultation: clear to auscultation bilaterally Cardio: Jugular venous distension: no JVD Rate: regular rate Rhythm: regular rhythm Heart sounds: S1 normal heart sound present and S2 normal heart sound present GI: Inspection: Yes normal to inspection Skin: General skin exam: no rashes or lesions noted Neuro: General: oriented to person, oriented to place and oriented to time Cranial nerves: Yes Other cranial nerve findings present (dysarthria ) Cognition (Neuro): normal cognition Motor exam (neuro): Other motor observations present (RUE strength of 3/5, RLE 2/5, LLE and LUE 5/5. Sensation preserved ) Results Labs CBC and Chem 7: 01/14/20 22:30 01/14/20 22:31 Labs: Laboratory Results - last 24 hr 01/14/20 01/14/20 01/14/20 21:23 21:27 22:30 MCV 79.2 L MCH 25.0 L MCHC 31.5 RDW 14.8 Plt Count 203 MPV 12.5 H Immature Gran % (Auto) 0.2 Neut % (Auto) 72.9 Lymph % (Auto) 17.8 L [place] % (Auto) 5.5 Eos % (Auto) 2.9 Baso % (Auto) 0.7 Lymph # (Auto) 1.8 [place] # (Auto) 0.5 Eos # (Auto) 0.3 Baso # (Auto) 0.1 Abs Immat Gran (auto) 0.02 Absolute Neuts (auto) 7.2 Absolute Nucleated RBC 0.000 Nucleated RBC % (auto) 0.0 PT Whole Blood PT 12.4 INR Whole Blood INR 1.0 APTT Anion Gap Estim Creat Clear Calc Estimated GFR POC Glucose 194 H Random Glucose Calcium Magnesium Total Creatine Kinase Troponin I High Sens TSH Coronavirus (PCR) Influenza Type A (PCR) Influenza Type B (PCR) RSV RNA Qual (PCR) 01/14/20 01/14/20 01/14/20 22:30 22:31 22:31 MCV MCH MCHC RDW Plt Count MPV Immature Gran % (Auto) Neut % (Auto) Lymph % (Auto) [place] % (Auto) Eos % (Auto) Baso % (Auto) Lymph # (Auto) [place] # (Auto) Eos # (Auto) Baso # (Auto) Abs Immat Gran (auto) Absolute Neuts (auto) Absolute Nucleated RBC Nucleated RBC % (auto) PT 11.7 Whole Blood PT INR 1.0 Whole Blood INR APTT 34.4 Anion Gap 13 Estim Creat Clear Calc 61.5 Estimated GFR > 60 POC Glucose Random Glucose 171 H Calcium 8.8 Magnesium 1.9 Total Creatine Kinase 36 Troponin I High Sens TSH 1.19 Coronavirus (PCR) Influenza Type A (PCR) Influenza Type B (PCR) RSV RNA Qual (PCR) 01/14/20 01/14/20 22:31 22:31 MCV MCH MCHC RDW Plt Count MPV Immature Gran % (Auto) Neut % (Auto) Lymph % (Auto) [place] % (Auto) Eos % (Auto) Baso % (Auto) Lymph # (Auto) [place] # (Auto) Eos # (Auto) Baso # (Auto) Abs Immat Gran (auto) Absolute Neuts (auto) Absolute Nucleated RBC Nucleated RBC % (auto) PT Whole Blood PT INR Whole Blood INR APTT Anion Gap Estim Creat Clear Calc Estimated GFR POC Glucose Random Glucose Calcium Magnesium Total Creatine Kinase Troponin I High Sens 131.0 H TSH Coronavirus (PCR) NEGATIVE Influenza Type A (PCR) NEGATIVE Influenza Type B (PCR) NEGATIVE RSV RNA Qual (PCR) NEGATIVE Imaging Radiologist's Impressions: Impressions Head CT 01/14/20 21:23 IMPRESSION: No acute intracranial pathology. This critical result was discussed with Kassidy [place] 01/14/2020, 9:43 PM. It was ascertained that the content and urgency of the report was understood at the time of direct communication. Head/Neck CTA 01/14/20 21:24 IMPRESSION: 1. No evidence of acute intracranial hemorrhage or edematous territorial infarction. 2. Chronic encephalomalacia of the left greater than right centrum semiovale/ragland radiata and right cerebellar hemisphere. Chronic lacunar infarcts of the left-sided deep nuclei. 3. CTA of the head and neck without proximal occlusion. However, there are multifocal moderate to high-grade irregular narrowings of the anterior and posterior circulation. In the neck, there are moderate stenoses of the origins of the vertebral arteries. Intracranially, there are moderate to high-grade stenoses of the right greater than left ICAs. Mild to moderate irregular narrowings of the A1 and M1 segments bilaterally. Moderate to high-grade irregular narrowings of the bilateral vertebral and proximal basilar arteries. Moderate irregular narrowings of the left greater than right P1 and P2 segments. Overall, findings are suspicious for advanced intracranial atherosclerotic disease that would be prone to perfusion insufficiencies in the setting of blood pressure changes. 4. 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 This critical result was discussed with Dr. Cedeno at 22:25 on 01/14/2020 and it was ascertained that the content and urgency of the report was understood at the time of direct communication. Chest X-Ray 01/14/20 23:01 IMPRESSION: Unremarkable examination. 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 Elevated likely secondary to demand ischemia repeat EKG in the am for prolonged QT Cardiology consult in the am (2) COPD (chronic obstructive pulmonary disease): Qualifiers: COPD type: chronic bronchitis Chronic bronchitis type: simple Qualified Code(s): J41.0 - Simple chronic bronchitis Status: Acute continue with home meds contact PCP in the am for chronic dexamethasone daily with no clear indication (3) Hyperlipidemia: Status: Acute continue with statin home dose (4) CHF (congestive heart failure): Status: Acute continue with lasix home dose
[2020-01-15] MEDS: Magnesium Sulfate/D5W 1 GM/100 ML PIGGYBACK IV (02:19)
[2020-01-15] MEDS: Heparin Sodium,Porcine 5,000 UNIT/ML VIAL 5000 UNIT SUBCUT ×3 (02:20→18:23)
[2020-01-15] MEDS: Isosorbide Mononitrate 30 MG TAB.ER.24H PO ×2 (02:22→08:49)
[2020-01-15 02:46] LABS: Troponin-I High Sensitivity 125.8 ng/L (<3.5-17.0)
--- NOTE | 2020-01-15 06:00 | CA_ITS ---
Transthoracic Echocardiogram Patient (Last, First, Middle): Zohra Carey, Gender: Female Date of : 1955 Age: 64 Procedure Date: 01/15/2020 Procedure Type: Transthoracic [place] [facility] [place]: 157.48 cm Weight: 63.96 kg BSA: 1.65 m2 Heart Rate: bpm BP: 160 / 63 mmHg Biodiesel Plant Manager: DSGabriel Referring MD: Tonia Reynolds MD Production Line Manager: Mohit De Leon MD Symptoms: elevated troponin Study Quality: Technically Difficult ECG Rhythm: Sinus Conclusions: - 1. Hyperdynamic LV systolic function with LVEF of greater than 70% with impaired relaxation filling pattern. There is increased gradient across the LVOT, not sure as to the level of obstruction. 2. Mild to moderate eccentric mitral regurgitation 3. Normal RV systolic pressure 4. No pericardial effusion Findings Left Ventricle Normal left ventricular cavity size. There is severely increased left ventricular wall thickness. The left ventricular systolic function is hyperdynamic. The visually estimated ejection fraction is >70%. Spectral Doppler is indicative of an impaired relaxation filling pattern. E/E prime ratio is between 8 and 15 consistent with indeterminate filling pressures. There is increased gradient across the left ventricular outflow tract, there is mid cavitary obliteration. The level of obstruction is unclear based on this study but appears to be at the mid cavitary level. Peak gradient is 28 mm Hg, lower than calculated on last study, could be underestimated on this study. Right Ventricle The right ventricle was not well visualized. Atria The left atrium is mildly dilated. Interatrial shunt cannot be excluded. The right atrium was not well visualized. Aortic Valve The aortic valve was not well visualized. There is no aortic valve stenosis. There is no aortic valve regurgitation. Mitral Valve There is mild anterior and posterior mitral leaflet thickening. There is mild to moderate mitral valve regurgitation. The mitral regurgitation jet is directed posteriorly. There is no mitral valve stenosis. Pulmonic Valve The pulmonic valve was not well visualized. Tricuspid Valve The tricuspid valve was not well visualized. There is mild tricuspid valve regurgitation. The right ventricular systolic pressure is normal. The right ventricular systolic pressure is 17 mmHg. There is no evidence of pulmonary hypertension. Great Vessels All visible segments of the aorta are normal in size. The pulmonary artery was not well visualized. Venous The inferior vena cava is normal in size and collapses greater than 50% with inspiration. Pericardium/Pleural There is no evidence of pericardial effusion. Prior Study Comparison No significant change compared to prior study dated: 03/18/2019. Measurements 2D Linear Measurements IVSd: 1.65 0.6-0.9/0.6-1.0 cm LVIDd: 3.29 3.9-5.3/4.2-5.9 cm LVIDd Index: 1.99 2.4-3.2/2.2-3.1 cm/m2 LVIDs: 2.01 2.0-3.6 cm LVPWd: 1.24 0.7-1.1 cm Ao Root: 2.70 2.1-3.5 cm LA Diam: 3.90 2.7-3.8/3.0-4.0 cm LAIDs Index: 2.36 1.5-2.3 cm/m2 LV Mass: 208.43 67-162/88-224 g LV Mass Index: 126.32 43-95/49-115 g/m2 LVOT Diam: 1.90 3.0+(-)1.3 cm Mitral Valve MV Pk E: 0.67 MV PK A: 1.20 MV Decel Time: 121.00 E/A: 0.60 E'Lateral: 8.22 E'Medial: 3.58 E/E' Med: 18.80 E/E' Lat: 8.20 PHT: 36.00 MVA PHT: 6.11 Decel King: 5.55 Aortic Valve AoV Pk Lit: 1.29 AoV Pk Grad: 7.00 LVOT LVOT Pk Lit: 1.19 LVOT Mn Lit: 0.76 LVOT VTI: 0.20 LVOT Pk Grad: 6.00 LVOT Mn Grad: 3.00 LVOT Diam: 1.90 LVOT Area: 2.84 Diastolic Function MV Pk E: 0.67 MV Pk A: 1.20 E/A: 0.60 E'Medial: 3.58 E/E' Med: 18.80 E' Laterial: 8.22 E/E' Lat: 8.20 Tricuspid Valve TR Pk Lit: 1.89 TR Pk Grad: 14.00 RA Press: 3.00 RVSP: 17.00 Great Vessels Aorta Ao Root-2D: 2.70 2.0-3.7 cm Ao Asc: 3.00 2.1-3.4 cm Updated in Other Vendor System with Status of Final Mohit DeL eon MD electronically signed on 01/15/2020 11:58:44 AM with status of Final
[2020-01-15 06:28] LABS: Hematocrit 41.7 % (37-47); MANUAL DIFF FLAG SCAN; Mean Platelet Volume 13.5 fL (9.4-12.3); Monocytes Absolute Auto 0.6 X10*3/uL (0.1-1.2); SCAN SMEAR FLAG 1
[2020-01-15 06:30] LABS: Basophils Absolute Auto 0.1 X10*3/uL (0.0-0.2); Basophils Percent Auto 0.9 % (0-2); Eosinophils Absolute Auto 0.4 X10*3/uL (0.0-0.4); Eosinophils Percent Auto 3.9 % (0-4); Hemoglobin 13.1 g/dl (12.0-16.0); Imm Gran Abs Auto 0.03 X10*3/uL (0.00-0.03); Imm Gran Pct Auto 0.3 % (0.0-0.4); Lymphocytes Absolute Auto 2.3 X10*3/uL (1.2-4.9); Lymphocytes Percent Auto 22.3 % (20-40); Mean Corpuscular HGB Conc 31.4 g/dl (31.0-35.0); Mean Corpuscular Volume 79.7 fL (80-98); Monocytes Percent Auto 5.8 % (2-11); Neutrophils Absolute Auto 6.9 X10*3/uL (2.0-8.3); Neutrophils Percent Auto 66.8 % (45-73); Platelet Count 183 X10*3/uL (160-400); Red Blood Count 5.23 X10*6/uL (4.20-5.50); Red Cell Distribution Width 14.9 % (11.0-16.0); White Blood Count 10.3 X10*3/uL (4.8-10.8)
[2020-01-15 06:46] LABS: PLT ABN DIST 1
[2020-01-15 06:50] LABS: SLIDE REVIEW VERIFIED
[2020-01-15 06:54] LABS: Anion Gap 11 (12-20); Blood Urea Nitrogen 17 mg/dL (9-16); Calcium 8.5 mg/dL (8.4-10.2); Carbon Dioxide 26 mmol/L (22-29); Chloride 106 mmol/L (96-108); Creatinine Clr Calc Pharmacy 64.1; Estimated Glomerular Filt Rate > 60; Glucose Random 105 mg/dL (60-115); Sodium 139 mmol/L (135-145)
[2020-01-15] MEDS: Albuterol/Iprat 2.5/0.5MG 3 ML AMPUL.NEB INHALE ×2 (07:19→15:22)
[2020-01-15] MEDS: Losartan Potassium 50 MG TABLET 100 MG PO (08:49)
[2020-01-15] MEDS: Furosemide 20 MG TABLET PO (08:49)
[2020-01-15] MEDS: hydrALAZINE HCl 50 MG TABLET PO (08:49)
[2020-01-15] MEDS: Aspirin Enteric Coated 81 MG TABLET.DR PO (08:50)
[2020-01-15] MEDS: carvediloL 12.5 MG TABLET PO (08:50)
[2020-01-15] MEDS: amLODIPine Besylate 5 MG TABLET PO (08:50)
[2020-01-15] MEDS: 0.9 % Sodium Chloride Flush 3 ML SYRINGE IVFLUSH ×3 (08:50→23:40)
--- NOTE | 2020-01-15 10:06 | P.CONCA_ITS ---
History of Present Illness History of Present Illness Date of Service: 01/15/20 Requesting physician: Lee Browne Consult reason: hypertension Chief complaint: Hypertensive Emergency Narrative: Thank you for inviting us in consult on Zohra for management of her hypertension as well as abnormal troponin. History was obtained with help of oil burner installer at bedside. Despite the oil burner installer the history is limited. Patient came in she says because she was having altered speech. She was also noted to be markedly hypertensive at home which was confirmed in the emergency room. She was then treated for hypertensive emergency. Subsequent workup has revealed evidence of old strokes as well as significant intracranial vascular disease. She says the symptoms of speech impediment are now gone. She has no other neurologic symptoms. She did not have any chest discomfort or shortness of breath. She has no clear history of current orthopnea or PND. No fever or chills. Her blood pressure continues to remain elevated. Troponin were minimally elevated and have remained flat. She had an echocardiogram in March which showed hyperdynamic LV systolic function with severe left ventricular hypertrophy with mid cavitary obstruction. Sleep study shows severe sleep apnea, not sure whether she has received the CPAP therapy. Review of Systems Review of Systems: Yes Unobtainable due to mental condition Cardiovascular: Cardiovascular: Denies chest pain and Denies dyspnea Respiratory: Respiratory: Denies dyspnea PMFSH Past Medical History Medical History COPD (chronic obstructive pulmonary disease) CVA (cerebral vascular accident) Hypertensive hypertrophic cardiomyopathy Murmur, cardiac YANI (obstructive sleep apnea) Functional capacity: independent ambulation Social History Social History Household Members: Children Household Members Other:: pt lives with daughter Housing: Apartment Do you presently have visiting nurse or other home services: No Alcohol intake: never Smoking Status: Never smoker Use of substances other than those prescribed or required for medical reasons: No Have you been hit, kicked, punched, or otherwise hurt by someone within the past year? If so, by whom?: No Do you feel safe in your current relationship?: No Current Relationship Is there a partner from a previous relationship who is making you feel unsafe now?: No Are you made to feel afraid or neglected: No Advance Directives: No Advance Directives Information Provided: No Do you have thoughts of harming others: None Do you have a plan to hurt others: No Plan Recently lost weight without trying: No service: No Current occupational status: disabled Meds Allergies Allergy/AdvReac Type Severity Reaction Status Date / Time No Known Allergies Allergy Verified 12/25/19 14:03 [No Known Allergies*] Home Medications Medication Instructions Recorded Confirmed Type amlodipine 5 mg tablet 5 mg PO DAILY 12/25/19 01/14/20 History aspirin 81 mg tablet,delayed 81 mg PO DAILY 12/25/19 01/14/20 History release atorvastatin 20 mg tablet 20 mg PO DAILY 12/25/19 01/14/20 History carvedilol 12.5 mg tablet 12.5 mg PO BID 12/25/19 01/14/20 History dextran 70-hypromellose (PF) 0.1 1 drp OPHTHALMIC (EYE) QID 12/25/19 01/14/20 History %-0.3 % eye drops in a dropperette furosemide 20 mg tablet 20 mg PO DAILY 12/25/19 01/14/20 History hydralazine 50 mg tablet 50 mg PO BID 12/25/19 01/14/20 History ipratropium 0.5 mg-albuterol 3 mg 3 ml INHALATION Q6H 12/25/19 01/14/20 History (2.5 mg base)/3 mL nebulization soln isosorbide mononitrate 30 mg 30 mg PO QAM 12/25/19 01/14/20 History tablet,extended release 24 hr losartan 100 mg tablet 100 mg PO DAILY 12/25/19 01/14/20 History Physical Exam Vital Signs: Vital Signs: Last Vital Signs Temp 97.8 F 01/15/20 08:00 Pulse 80 01/15/20 08:50 Resp 18 01/15/20 08:00 BP 184/96 H 01/15/20 08:50 Pulse Ox 95 01/15/20 08:00 Body Mass Index 25.9 Const: General: no acute distress, alert and awake Orientation/consciousness: oriented to person and oriented to place Limitations: other limitations (Bed-bound) HENMT: Head: Yes normocephalic and Yes atraumatic Eyes: General: appearance normal, both eyes and all related structures Neck: Neck: Yes trachea midline, Yes supple and Yes no JVD Chest: Chest palpation & inspection: normal inspection of the chest Resp: Effort & Inspection: decreased respiratory effort Auscultation: clear to auscultation bilaterally Cardio: Palpation: abnormal PMI displaced PMI and heave Rate: regular rate Rhythm: regular rhythm Heart sounds: S1 normal heart sound present, S2 normal heart sound present, Murmur heart sound present (Ejection systolic murmur best heard in the left parasternal area) and Other heart sounds present (S4 present) GI: Auscultation: normal bowel sounds Skin: General skin exam: no rashes or lesions noted Neuro: General: oriented to person, oriented to place and other (Right hemiplegia) Extrem: General: Yes no clubbing, cyanosis or edema Results Labs and Meds Result diagrams: 01/15/20 05:33 01/15/20 05:33 Lab results: Laboratory Results - last 24 hr 01/14/20 01/14/20 01/14/20 21:23 21:27 22:30 WBC 9.8 RBC 5.49 Hgb 13.7 Hct 43.5 MCV 79.2 L MCH 25.0 L MCHC 31.5 RDW 14.8 Plt Count 203 MPV 12.5 H Immature Gran % (Auto) 0.2 Neut % (Auto) 72.9 Lymph % (Auto) 17.8 L [place] % (Auto) 5.5 Eos % (Auto) 2.9 Baso % (Auto) 0.7 Lymph # (Auto) 1.8 [place] # (Auto) 0.5 Eos # (Auto) 0.3 Baso # (Auto) 0.1 Abs Immat Gran (auto) 0.02 Absolute Neuts (auto) 7.2 Absolute Nucleated RBC 0.000 Nucleated RBC % (auto) 0.0 Smear Tech's Comments PT Whole Blood PT 12.4 INR Whole Blood INR 1.0 APTT Sodium Potassium Chloride Carbon Dioxide Anion Gap BUN Creatinine Estim Creat Clear Calc Estimated GFR POC Glucose 194 H Random Glucose Calcium Magnesium Total Creatine Kinase Troponin I High Sens TSH Coronavirus (PCR) Influenza Type A (PCR) Influenza Type B (PCR) RSV RNA Qual (PCR) 01/14/20 01/14/20 01/14/20 22:30 22:31 22:31 WBC RBC Hgb Hct MCV MCH MCHC RDW Plt Count MPV Immature Gran % (Auto) Neut % (Auto) Lymph % (Auto) [place] % (Auto) Eos % (Auto) Baso % (Auto) Lymph # (Auto) [place] # (Auto) Eos # (Auto) Baso # (Auto) Abs Immat Gran (auto) Absolute Neuts (auto) Absolute Nucleated RBC Nucleated RBC % (auto) Smear Tech's Comments PT 11.7 Whole Blood PT INR 1.0 Whole Blood INR APTT 34.4 Sodium 138 Potassium 3.8 Chloride 105 Carbon Dioxide 24 Anion Gap 13 BUN 18 H Creatinine 0.87 Estim Creat Clear Calc 61.5 Estimated GFR > 60 POC Glucose Random Glucose 171 H Calcium 8.8 Magnesium 1.9 Total Creatine Kinase 36 Troponin I High Sens TSH 1.19 Coronavirus (PCR) Influenza Type A (PCR) Influenza Type B (PCR) RSV RNA Qual (PCR) 01/14/20 01/14/20 01/15/20 22:31 22:31 02:13 WBC RBC Hgb Hct MCV MCH MCHC RDW Plt Count MPV Immature Gran % (Auto) Neut % (Auto) Lymph % (Auto) [place] % (Auto) Eos % (Auto) Baso % (Auto) Lymph # (Auto) [place] # (Auto) Eos # (Auto) Baso # (Auto) Abs Immat Gran (auto) Absolute Neuts (auto) Absolute Nucleated RBC Nucleated RBC % (auto) Smear Tech's Comments PT Whole Blood PT INR Whole Blood INR APTT Sodium Potassium Chloride Carbon Dioxide Anion Gap BUN Creatinine Estim Creat Clear Calc Estimated GFR POC Glucose Random Glucose Calcium Magnesium Total Creatine Kinase Troponin I High Sens 131.0 H 125.8 H TSH Coronavirus (PCR) NEGATIVE Influenza Type A (PCR) NEGATIVE Influenza Type B (PCR) NEGATIVE RSV RNA Qual (PCR) NEGATIVE 01/15/20 01/15/20 05:33 05:33 WBC 10.3 RBC 5.23 Hgb 13.1 Hct 41.7 MCV 79.7 L MCH 25.0 L MCHC 31.4 RDW 14.9 Plt Count 183 MPV 13.5 H Immature Gran % (Auto) 0.3 Neut % (Auto) 66.8 Lymph % (Auto) 22.3 [place] % (Auto) 5.8 Eos % (Auto) 3.9 Baso % (Auto) 0.9 Lymph # (Auto) 2.3 [place] # (Auto) 0.6 Eos # (Auto) 0.4 Baso # (Auto) 0.1 Abs Immat Gran (auto) 0.03 Absolute Neuts (auto) 6.9 Absolute Nucleated RBC 0.000 Nucleated RBC % (auto) 0.0 Smear Tech's Comments VERIFIED PT Whole Blood PT INR Whole Blood INR APTT Sodium 139 Potassium 4.0 Chloride 106 Carbon Dioxide 26 Anion Gap 11 L BUN 17 H Creatinine 0.78 Estim Creat Clear Calc 64.1 Estimated GFR > 60 POC Glucose Random Glucose 105 D Calcium 8.5 Magnesium Total Creatine Kinase Troponin I High Sens TSH Coronavirus (PCR) Influenza Type A (PCR) Influenza Type B (PCR) RSV RNA Qual (PCR) IMPRESSION: 1. No evidence of acute intracranial hemorrhage or edematous territorial infarction. 2. Chronic encephalomalacia of the left greater than right centrum semiovale/ragland radiata and right cerebellar hemisphere. Chronic lacunar infarcts of the left-sided deep nuclei. 3. CTA of the head and neck without proximal occlusion. However, there are multifocal moderate to high-grade irregular narrowings of the anterior and posterior circulation. In the neck, there are moderate stenoses of the origins of the vertebral arteries. Intracranially, there are moderate to high-grade stenoses of the right greater than left ICAs. Mild to moderate irregular narrowings of the A1 and M1 segments bilaterally. Moderate to high-grade irregular narrowings of the bilateral vertebral and proximal basilar arteries. Moderate irregular narrowings of the left greater than right P1 and P2 segments. Overall, findings are suspicious for advanced intracranial atherosclerotic disease that would be prone to perfusion insufficiencies in the setting of blood pressure changes. 4. 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 Assessment and Plan (1) Hypertensive emergency, no CHF: Status: Acute Hypertensive emergency with neurologic symptoms. This have resolved with improving blood pressure. However blood pressure remains continue Jennifer significantly elevated. Will need to discuss with Neurology as to the blood pressure targets as she has significant intracranial stenosis. Avoid aggressive correction of her blood pressure as this may lead to cerebral hypoperfusion. Increase carvedilol to 25 mg b.i.d.. Also increase hydralazine to 100 mg b.i.d.. Continue other medications. Unclear as to the reason for her uncontrolled blood pressure. Consider cortisol levels. Also could be related to untreated obstructive sleep apnea, not sure if she has received CPAP therapy at home. This needs to be instituted as soon as possible on discharge. 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 Transient neurologic symptoms could be related to hypertensive emergency. This has resolved. Consider neurology consult. Continue low-dose aspirin therapy. Continue high-intensity statin therapy. (3) YANI (obstructive sleep apnea): Status: Acute Need to confirm treatment has been establish for her significant sleep nps ea. (4) Hypertensive hypertrophic cardiomyopathy: Problem details: Echocardiogram, March 2019 shows hyperdynamic LV systolic function with severe LVH with mid cavitary gradient of 40 mm of mercury Status: Acute Hypertensive hypertrophic obstructive cardiomyopathy. Related to uncontrolled blood pressure. As above blood pressure needs to be aggressively controlled. She does not appear to be currently in congestive heart failure. Systolic murmur related to her obstructive physiology. Avoid significant hypo he Gisele. She is on chronic dose of oral Lasix for history of heart failure. Does not appear to be in heart failure today. Continue oral Lasix therapy. (5) Myocardial injury: Status: Acute Troponin elevation related to myocardial injury due to significant h ypertension in subendocardial strain in the setting of known prior hypertensive hypertrophic cardiomyopathy. This is not suggestive of acute coronary syndrome. No other therapy is indicated except for controlling her blood pressure aggressively. This most likely appears to be a chronic myocardial injury pattern. Will sign of the case at current time. Feel free to call us if there any questions thank you
--- NOTE | 2020-01-15 10:20 | MHC.CM.PN ---
CM met with patient at the bedside with a market development executive. Patient reports she is dependent for care and lives with her dtr who provides her care. Patient denies any services in the home. Patient states she has a HCP, requested copy. Discussed discharge plan, patient is agreeable to referrals for [facility] and [facility]. 1st choice is [facility], referral sent via allscripts. Referral made to [facility] for [facility] services. Discharge plan is home with services. Patient will need BLS transport. CM will continue to follow patient for discharge needs.
[2020-01-15] MEDS: 0.9 % Sodium Chloride 500 ML IV (11:07)
--- NOTE | 2020-01-15 11:57 | P.CDIC_ITS ---
CDI Concurrent Query Service Date: 01/15/20 Documentation Clarification: Please clarify if you are treating a proba ble/suspected/likely or confirmed: Chronic diastolic and/or systolic Congestive heart failure Acute on chronic diastolic and/or systolic Congestive heart failure Please specify if known Provider Response: Other Other Diagnosis: less likely chf as per cardio. PLEASE DO NOT DELETE/MODIFY EXISTING CONTENT Additional information is needed in order to code to the highest accuracy and appropriate Severity of Illness (SOI). Please clarify the information noted below in your progress notes and discharge summary. Risk Factors/Clinical Indicators/Treatments ED: History of CHF Clinical impression - No CHF H&P: Assessment/plan: CHF, acute continue on home dose Furosemide 50mg PO BID. Cardiology consult patient asymptomatic. follow up 2nd Echo. CDS: Shahla Guajardo CCS, [facility] Contact Number: [phone] Please Review the information above and exercise your independent professional judgment in responding to the query. If you concur, pleas document in the PROGRESS NOTES and DISCHARGE SUMMARY. If you do not agree with the query, please document in the query above. THIS QUERY IS PART OF THE PERMANENT MEDICAL RECORD
--- NOTE | 2020-01-15 12:15 | P.CNNE_ITS ---
History of Present Illness Data of Consult Service Date: 01/15/20 Primary Care Provider: April Zelaya MD 64 years old woman with underlying history of a stroke causing right hemiparesis and difficulty speaking came to hospital with high blood pressure. Apparently at home her blood pressure was 2 50+. In the emergency room which was 266 systolic. She was unable to provide any meaningful history. It was not clear if there was any worsening of stroke but family noted that she was somewhat worse. I had a discussion with emergency room physician and my impression was that this was likely hypertensive encephalopathy and my recommendation was not to consider treatment with intravenous tPA. Also her imaging had not reveal any acute lesion. There was no history of any recent seizure. Review of Systems Review of Systems: Review of system could not be done with her. [facility] Past Medical History Medical History (Updated 01/15/20 @ 12:19 by Jorge Luis Roberts MD) COPD (chronic obstructive pulmonary disease) CVA (cerebral vascular accident) Hypertensive hypertrophic cardiomyopathy Murmur, cardiac YANI (obstructive sleep apnea) Functional capacity: independent ambulation Social History Social History Household Members: Children Household Members Other:: pt lives with daughter Housing: Apartment Do you presently have visiting nurse or other home services: No Alcohol intake: never Smoking Status: Never smoker Use of substances other than those prescribed or required for medical reasons: No Have you been hit, kicked, punched, or otherwise hurt by someone within the past year? If so, by whom?: No Do you feel safe in your current relationship?: No Current Relationship Is there a partner from a previous relationship who is making you feel unsafe now?: No Are you made to feel afraid or neglected: No Advance Directives: No Advance Directives Information Provided: No Do you have thoughts of harming others: None Do you have a plan to hurt others: No Plan Recently lost weight without trying: No service: No Current occupational status: disabled Meds Allergies Allergy/AdvReac Type Severity Reaction Status Date / Time No Known Allergies Allergy Verified 12/25/19 14:03 [No Known Allergies*] Home Medications Medication Instructions Recorded Confirmed Type amlodipine 5 mg tablet 5 mg PO DAILY 12/25/19 01/14/20 History aspirin 81 mg tablet,delayed 81 mg PO DAILY 12/25/19 01/14/20 History release atorvastatin 20 mg tablet 20 mg PO DAILY 12/25/19 01/14/20 History dextran 70-hypromellose (PF) 0.1 1 drp OPHTHALMIC (EYE) QID 12/25/19 01/14/20 History %-0.3 % eye drops in a dropperette furosemide 20 mg tablet 20 mg PO DAILY 12/25/19 01/14/20 History ipratropium 0.5 mg-albuterol 3 mg 3 ml INHALATION Q6H 12/25/19 01/14/20 History (2.5 mg base)/3 mL nebulization soln isosorbide mononitrate 30 mg 30 mg PO QAM 12/25/19 01/14/20 History tablet,extended release 24 hr Physical Exam Vital Signs: Vital Signs: Last Vital Signs Temp 97.8 F 01/15/20 08:00 Pulse 79 01/15/20 10:41 Resp 18 01/15/20 08:00 BP 96/60 01/15/20 10:41 Pulse Ox 95 01/15/20 08:00 Body Mass Index 25.9 She was alert and awake made eye contact and slowly spoke in a dysarthric and dysphasic speech. She was able to follow some simple commands and told me her name. Spontaneity and fluency of speech were diminished. There was central right-sided facial weakness right visual field defect and right hemiparesis. Left plantar was also extensor. Results Labs CBC & Chem 7: 01/15/20 05:33 01/15/20 05:33 Labs: Short CBC 01/14/20 01/15/20 Range/Units 22:30 05:33 WBC 9.8 10.3 (4.8-10.8) X10*3/uL Hgb 13.7 13.1 (12.0-16.0) g/dl Hct 43.5 41.7 (37-47) % Plt Count 203 183 (160-400) X10*3/uL BMP 01/14/20 01/15/20 22:31 05:33 Sodium 138 139 Potassium 3.8 4.0 Chloride 105 106 Carbon Dioxide 24 26 BUN 18 H 17 H Creatinine 0.87 0.78 Calcium 8.8 8.5 Cardiac Enzymes 01/14/20 Range/Units 22:31 Total Creatine Kinase 36 (26-140) U/L Her head CT revealed a chronic left basal ganglia area moderate to large size infarct. There was significant diffuse cerebellar atrophy and mild cortical atrophy. 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 Looking at imaging it seems that this might have been a bleed. 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 She came to hospital with uncontrolled blood pressure and was reportedly having more symptoms of stroke. I believe this was related to hypertension. There was no evidence of any acute lesion at this time. There was no indication of active intervention such as tPA or intra-arterial treatment. Mainstay of management is proper blood pressure control, family education so that they could provide her proper doses of medications.
--- NOTE | 2020-01-15 14:04 | HO.PM.IMPN ---
Subjective Subjective Date of Service: 01/15/20 Interval History: Uncontrolled hypertension,? Unclear about medication compliance Review of Systems Patient blood pressure is fluctuating Denies any chest pain or shortness of breath denies any new weakness or numbness Denies any abdominal pain or urinary complaints. Physical Exam Vital Signs: Vital Signs: Last Vital Signs Temp 96.4 F L 01/15/20 12:00 Pulse 76 01/15/20 12:00 Resp 20 01/15/20 12:00 BP 125/68 01/15/20 12:00 Pulse Ox 96 01/15/20 12:00 Body Mass Index 25.9 Physical exam: HEENT: eyes anicteric , no discharge. Cvs: rrr, [id number] , no murmur. res: clear to auscultation ,no rhonchii or wheezing abd: no rebound or guarding ,nt, bs present. ext pulses present , no cyanosis neuro: axo3 ,right hemmiparesis Objective Data Current Medications Generic Name Dose Route Start Last Admin Trade Name Freq PRN Reason Stop Dose Admin Albuterol/Ipratropium 3 ml 01/15/20 00:45 01/15/20 14:02 Albuterol/Iprat 2.5/0.5mg 3 Ml Ampul.Neb INHALE Not Given Q6H [facility] Amlodipine Besylate 5 mg 01/15/20 09:00 01/15/20 08:50 Amlodipine Besylate 5 Mg Tablet PO 5 mg DAILY [facility] Administration Protocol Aspirin 81 mg 01/15/20 09:00 01/15/20 08:50 Aspirin Enteric Coated 81 Mg Tablet.Dr PO 81 mg DAILY [facility]I Administration Atorvastatin Calcium 20 mg 01/15/20 22:00 Atorvastatin Calcium 20 Mg Tablet PO 2200 [facility] Carvedilol 25 mg 01/15/20 21:00 Carvedilol 12.5 Mg Tablet PO BID [facility] Protocol Furosemide 20 mg 01/15/20 09:00 01/15/20 08:49 Furosemide 20 Mg Tablet PO 20 mg DAILY [facility] Administration Protocol Heparin Sodium (Porcine) 5,000 unit 01/15/20 01:21 01/15/20 08:50 Heparin Sodium,Porcine 5,000 Unit/Ml Vial SUBCUT 5,000 unit Q8H [facility]I Administration Hydralazine HCl 100 mg 01/15/20 21:00 Hydralazine Hcl 25 Mg Tablet PO BID [facility] Protocol Isosorbide Mononitrate 30 mg 01/15/20 00:45 01/15/20 08:49 Isosorbide Mononitrate 30 Mg Tab.Er.24h PO 30 mg DAILY [facility]I Administration Protocol Losartan Potassium 100 mg 01/15/20 09:00 01/15/20 08:49 Losartan Potassium 50 Mg Tablet PO 100 mg DAILY [facility]ANDI Administration Protocol Non-Formulary Medication 1 drop 01/15/20 09:00 Dextran 70-Hypromellose (Pf) EYE-BOTH QID [facility] Sodium Chloride 3 ml 01/15/20 08:00 01/15/20 08:50 0.9 % Sodium Chloride Flush 3 Ml Syringe IVFLUSH 3 ml QSHIFT [facility]ANDI Administration Labs CBC & Chem 7: 01/15/20 05:33 01/15/20 05:33 Assessment and Plan (1) Hypertensive emergency, no CHF: Status: Acute Assessment and Plan: 1.Hypertensive emergency, no CHF: Unclear about compliance issue with meds ? Checked with pharmacy: Seems like patient was on home on amlodipine 5 mg, isosorbide 30 mg , ? Unclear whether the patient was on Coreg or hydralazine. Patient blood pressure dropped this morning: In 90s, will give fluid and monitor blood pressure to a now early currently patient is asymptomatic. Cardio evaluation noted since we are not sure patient is on Coreg and hydralazine will hold off since the blood pressure drop with above medications, will give fluid bolus to keep blood pressure acceptable range. blood pressure is improving to 130' s with fluids d/w neuro patient has ICA stenosis goal blood pressure is 160-180 mmhg acutely -so added NS @100 ml/hr moniter blood pressure closely -if blood pressure is 160 mmhg or above -please stop NS and if blood pressure still consistently goal above , then may needs additional antihypertensive medications. discussed with the staff in detail. please call night hospitalist coverage if any questions 2.Diffuse intracranial stenosis: Seen by neuro recommended to continue aspirin, statin, recommended a blood pressure control, Continue to monitor. (3) COPD (chronic obstructive pulmonary disease): continue with home meds, duonebs. contact PCP in the am for chronic dexamethasone daily with no clear indication As per patient daughter patient was supposed to be on CPAP the machine delivery still pending, respiratory is notified inquire about CPAP, as well as pulm eval added. (4) Hyperlipidemia: continue with statin . (5) CHF (congestive heart failure):continue with lasix.
[2020-01-15] MEDS: 0.9 % Sodium Chloride 1,000 ML 100 ML IVCONT (19:44)
[2020-01-15] MEDS: Atorvastatin Calcium 20 MG TABLET PO (20:37)
[2020-01-16] VITALS (17 sets, daily range): BP systolic 136–200; BP diastolic 69–104; PULSE 67–100; RESP 16–84; TEMP 36.4–36.9; O2SAT 95–100
--- NOTE | 2020-01-16 00:18 | PC.RT ---
Pt placed on auto cpap [id number] at 2230. At 0015 pt ripped off cpap mask stating it was too tight and uncomfortable, refusing to go back on and refusing scheduled nebulizer states she just wants to go to sleep.
[2020-01-16] MEDS: Heparin Sodium,Porcine 5,000 UNIT/ML VIAL 5000 UNIT SUBCUT ×3 (00:44→17:47)
[2020-01-16] MEDS: Metoprolol Tartrate 5 MG/5 ML VIAL IVPUSH (00:45)
[2020-01-16] MEDS: 0.9 % Sodium Chloride 1,000 ML 100 ML IVCONT (06:30)
[2020-01-16] MEDS: Isosorbide Mononitrate 30 MG TAB.ER.24H PO (09:00)
[2020-01-16] MEDS: Aspirin Enteric Coated 81 MG TABLET.DR PO (09:00)
[2020-01-16] MEDS: Furosemide 20 MG TABLET PO (09:00)
[2020-01-16] MEDS: amLODIPine Besylate 5 MG TABLET PO ×2 (09:00→12:04)
[2020-01-16] MEDS: Albuterol/Iprat 2.5/0.5MG 3 ML AMPUL.NEB INHALE ×3 (11:42→23:41)
--- NOTE | 2020-01-16 11:48 | P.CONPL_ITS ---
History of Present Illness History of Present Illness Consult date: 01/16/20 Chief complaint: Hypertensive Emergency Narrative: The patient is a 64-year-old woman with a known history of COPD in addition to heart disease and CVA. She has had multiple CVAs and now she is wheelchair-bound. She has a very we can cough and has some dysphagia issues. Her breathing has gotten worse specially at nighttime. She also describes daytime drowsiness and headaches in the morning. She has never had a sleep study. Her [place] score is elevated 14/24. She will need a sleep study at this time. She will benefit from CPAP if indeed she has underlying obstructive sleep apnea with her degree of cardiovascular and cerebrovascular disease. We did review her sleep study demonstrating an AHI of 30 along with a pulse oximeter which decreased down to 63%. The patient does have significant issues because her stroke and I do believe that it would be best to perform a CPAP BiPAP titration in order to find the right settings and also the right mask along with the question to see if she is going to need any oxygen supplementation in view of her significant hypoxia noted on her sleep study. She did attempt to have the CPAP titration study, but, the patient could not tolerated because she could not state herself in the hospital. Therefore the patient was not able to completed. In the meantime she has severe sleep apnea with significant hypoxia. Therefore, will start her on APAP therapy at this time. In the meantime the patient was noted to have a reading on BP monitor of 266/60 mmHg for what decision to come to the ED was made. On presentation patient had a STAT CT followed by a CTA head and neck which were negative for an acute intracranial pathology, it is evident significant stenosis and atherosclerosis disease in the posterior circulation of the brain. Vitals at presentation 260/13 0 mmHg and 109 bpm. Patient was given a total of 3 doses of IV labetalol with improvement of BP to 160/94 and pulse of 96. Initial EKG showed no evidence of any acute ST T wave changes, prolonged QT. Patient given 1 mg IV of magnesium. Neurology was contacted per ED Dr Roberts who does not recommends any further intervention for neurology point of view. Patient has a hx of stroke in the past with right sided hemiparesis and dysarthria. NIH scale on presentation of 7. Decision for admission given for Hypertensive Emergency. Her BP is better. She was started on APAP in the hopsital, Avg pressure of 8cm. Her AHI is down to 7. Review of Systems Constitutional: Constitutional: Denies night sweats ENT: Denies change in voice, Denies lip swelling, Denies mouth pain, Reports nasal congestion, Reports nasal discharge and Denies tongue swelling Cardiovascular: Cardiovascular: Denies chest pain Respiratory: Respiratory: Reports cough Gastrointestinal: Gastrointestinal: Denies abdominal pain Musculoskeletal: Musculoskeletal: Denies no additional musculoskeletal complaints Neurologic: Denies Neuro-related abnormal movements Psychiatric: Psychiatric: Denies no additional psychiatric complaints Hematologic/Lymphatic: Hematologic/Lymphatic: Denies easy bleeding and Denies lymphadenopathy Allergic/Immunologic: Allergic/Immunologic: Denies lip swelling and Denies tongue swelling [facility] Past Medical History Medical History (Updated 01/15/20 @ 16:30 by Lee Browne MD) COPD (chronic obstructive pulmonary disease) CVA (cerebral vascular accident) Hypertensive hypertrophic cardiomyopathy Murmur, cardiac YANI (obstructive sleep apnea) Functional capacity: independent ambulation Social History Social History Household Members: Children Household Members Other:: pt lives with daughter Housing: Apartment Do you presently have visiting nurse or other home services: No Alcohol intake: never Smoking Status: Never smoker Use of substances other than those prescribed or required for medical reasons: No Currently Displaying Signs/Symptoms of Drug Intoxication Withdrawal: No Have you been hit, kicked, punched, or otherwise hurt by someone within the past year? If so, by whom?: No Do you feel safe in your current relationship?: No Current Relationship Is there a partner from a previous relationship who is making you feel unsafe now?: No Are you made to feel afraid or neglected: No Advance Directives: No Advance Directives Information Provided: No Do you have thoughts of harming others: None Do you have a plan to hurt others: No Plan Recently lost weight without trying: No service: No Current occupational status: disabled Meds Allergies Allergy/AdvReac Type Severity Reaction Status Date / Time No Known Allergies Allergy Verified 12/25/19 14:03 [No Known Allergies*] Home Medications Medication Instructions Recorded Confirmed Type amlodipine 5 mg tablet 5 mg PO DAILY 12/25/19 01/14/20 History aspirin 81 mg tablet,delayed 81 mg PO DAILY 12/25/19 01/14/20 History release atorvastatin 20 mg tablet 20 mg PO DAILY 12/25/19 01/14/20 History dextran 70-hypromellose (PF) 0.1 1 drp OPHTHALMIC (EYE) QID 12/25/19 01/14/20 History %-0.3 % eye drops in a dropperette furosemide 20 mg tablet 20 mg PO DAILY 12/25/19 01/14/20 History ipratropium 0.5 mg-albuterol 3 mg 3 ml INHALATION Q6H 12/25/19 01/14/20 History (2.5 mg base)/3 mL nebulization soln isosorbide mononitrate 30 mg 30 mg PO QAM 12/25/19 01/14/20 History tablet,extended release 24 hr Physical Exam Vital Signs: Vital Signs: Last Vital Signs Temp 98.1 F 01/16/20 11:11 Pulse 90 01/16/20 11:43 Resp 18 01/16/20 11:11 BP 151/70 H 01/16/20 11:11 Pulse Ox 97 01/16/20 11:11 Body Mass Index 25.9 Const: General: alert HENMT: General nose exam: Abnormal external nose present and Nasal discharge present Neck: Neck: Yes normal visual inspection, Yes full ROM and Yes no lymphadenopathy Chest: Chest palpation & inspection: normal inspection of the chest Resp: Auscultation: diminished lung sounds Cardio: Rate: regular rate Rhythm: regular rhythm Heart sounds: S1 normal heart sound present, S2 normal heart sound present and Murmur heart sound present GI: Palpation (GI): Soft to palpation and nontender Auscultation: normal bowel sounds : General: Yes no CVA tenderness Back/Spine/Pelvis: Back: no CVA tenderness Results Laboratory Findings CBC and BMP: 01/15/20 05:33 01/15/20 05:33 ABG, PT/INR, D-dimer: PT/INR, D-dimer PT 11.7 SEC (10.8-13.0) 01/14/20 22:30 INR 1.0 (0.9-1.1) 01/14/20 22:30 Abnormal lab findings: Abnormal Labs 01/14/20 01/14/20 01/14/20 21:23 22:30 22:31 MCV 79.2 L MCH 25.0 L MPV 12.5 H Lymph % (Auto) 17.8 L Anion Gap BUN 18 H POC Glucose 194 H Random Glucose 171 H Troponin I High Sens 01/14/20 01/15/20 01/15/20 22:31 02:13 05:33 MCV 79.7 L MCH 25.0 L MPV 13.5 H Lymph % (Auto) Anion Gap BUN POC Glucose Random Glucose Troponin I High Sens 131.0 H 125.8 H 01/15/20 05:33 MCV MCH MPV Lymph % (Auto) Anion Gap 11 L BUN 17 H POC Glucose Random Glucose Troponin I High Sens Assessment and Plan (1) COPD (chronic obstructive pulmonary disease): Qualifiers: COPD type: chronic bronchitis Chronic bronchitis type: simple Qualified Code(s): J41.0 - Simple chronic bronchitis Status: Acute Respiratory therapy (2) YANI (obstructive sleep apnea): Status: Acute Adjusted APAP 6-20. Will reach out to her [employer] to set her up [facility] upon discharge (3) Hypertensive emergency, no CHF: Status: Acute
--- NOTE | 2020-01-16 11:56 | MHC.CM.PN ---
CM received a phone call from Emani at [facility], patient is already active and has AGENT hrs in morning, afternoon and night time. [facility] is able to accept patient.
--- NOTE | 2020-01-16 12:58 | PM.PNCARD ---
Subjective Subjective Date of Service: 01/16/20 Principal diagnosis: Hypertensive emergency, reversible neurologic deficit Interval history: patient is feeling better. Denies any neurologic symptoms. Blood pressure is markedly labile. After receiving her usual home medications yesterday her blood pressure dropped significantly. She was then started on IV fluid. Overnight her blood pressure has started increasing again. She was given 10 mg of amlodipine. Her other medications were discontinued except for isosorbide and Lasix. She denies any heart failure syndrome. Echocardiogram again consistent with hypertensive hypertrophic obstructive cardiomyopathy with mid cavitary obstruction. Review of Systems Review of Systems Patient blood pressure is fluctuating Denies any chest pain or shortness of breath denies any new weakness or numbness Denies any abdominal pain or urinary complaints. Constitutional: Reports no additional constitutional complaints Cardiovascular: Denies chest pain, Denies palpitations and Denies dyspnea Respiratory: Reports no additional respiratory complaints and Denies dyspnea Gastrointestinal: Reports no additional gastrointestinal complaints Reports system reviewed and no additional complaints, except as documented Endocrine: Denies palpitations Hematologic/Lymphatic: Reports no additional hematologic/lymphatic complaints Allergic/Immunologic: Reports no additional allergic/immunologic complaints Physical Exam Vital Signs: Last Vital Signs Temp 98.1 F 01/16/20 11:11 Pulse 90 01/16/20 12:04 Resp 18 01/16/20 11:11 BP 151/70 H 01/16/20 12:04 Pulse Ox 97 01/16/20 11:11 Body Mass Index 25.9 Const General: cooperative, comfortable, no acute distress, alert and awake Orientation/consciousness: oriented to person, oriented to place and oriented to time Limitations: other limitations (Bed-bound) [facility] Head: Yes normal to inspection, Yes normocephalic and Yes atraumatic General nose exam: Abnormal external nose present and Nasal discharge present Eyes General: appearance normal, both eyes and all related structures Neck Neck: Yes normal visual inspection, Yes full ROM, Yes no lymphadenopathy, Yes trachea midline, Yes supple and Yes no JVD Chest Chest palpation & inspection: normal inspection of the chest Resp Effort & Inspection: normal respiratory effort and decreased respiratory effort Auscultation: clear to auscultation bilaterally and diminished lung sounds Cardio Jugular venous distension: no JVD Palpation: abnormal PMI displaced PMI and heave Rate: regular rate Rhythm: regular rhythm Heart sounds: S1 normal heart sound present, S2 normal heart sound present, Murmur heart sound present and Other heart sounds present (S4 present) GI Inspection: Yes normal to inspection Palpation (GI): Soft to palpation and nontender Auscultation: normal bowel sounds General: Yes no CVA tenderness Back/Spine/Pelvis Back: no CVA tenderness Skin General skin exam: no rashes or lesions noted Neuro General: oriented to person, oriented to place, oriented to time and other (Right hemiplegia) Cranial nerves: Yes Other cranial nerve findings present (dysarthria ) Cognition (Neuro): normal cognition Motor exam (neuro): Other motor observations present (RUE strength of 3/5, RLE 2/5, LLE and LUE 5/5. Sensation preserved ) Extrem General: Yes no clubbing, cyanosis or edema Results Labs and Meds Result diagrams: 01/15/20 05:33 01/15/20 05:33 Progress Note: A&P Assessment and plan (1) Hypertensive emergency, no CHF: Status: Acute Assessment and Plan: Admitted with hypertensive emergency. Blood pressure is better control but very labile. She had significant hypertensive response to her usual medications. These either indicates noncompliance at home a possible intravascular volume depletion with obstructive physiology. Appropriately reduced /discontinued carvedilol and hydralazine at this time. Also given her obstructive physiology not a good candidate for long-acting nitrates. This should be discontinued. Have taken the liberty to do the same. Will also add low-dose carvedilol 3.125 mg b.i.d. to her regimen to help with obstructive physiology. Should maximize that drug as tolerated. Would consider also switching her Norvasc to verapamil like drug to also help with her obstructive physiology given negative inotropic action. Importance of adequate hydration was discussed. (2) Hypertensive hypertrophic cardiomyopathy: Problem details: Echocardiogram, March 2019 shows hyperdynamic LV systolic function with severe LVH with mid cavitary gradient of 40 mm of mercury Status: Acute Assessment and Plan: Management as above. Significant hypertensive cardiomyopathy with mid cavitary obstructive physiology. Management with negative inotropic agent for blood pressure control such as beta-blockers and calcium channel gege such as verapamil. (3) YANI (obstructive sleep apnea): Status: Acute Assessment and Plan: Adjusted APAP 6-20. Will reach out to her [employer] to set her up [facility] upon discharge Fall Risk Details Current Medications: Current Medications Generic Name Dose Route Start Last Admin Trade Name Freq PRN Reason Stop Dose Admin Albuterol/Ipratropium 3 ml 01/15/20 00:45 01/16/20 11:42 Albuterol/Iprat 2.5/0.5mg 3 Ml Ampul.Neb INHALE 3 ml Q6H MANDI Administration Amlodipine Besylate 5 mg 01/15/20 09:00 01/16/20 12:04 Amlodipine Besylate 5 Mg Tablet PO 5 mg DAILY [facility]I Administration Protocol Amlodipine Besylate 5 mg 01/16/20 09:00 01/16/20 09:00 Amlodipine Besylate 5 Mg Tablet PO 5 mg DAILY [facility]I Administration Protocol Aspirin 81 mg 01/15/20 09:00 01/16/20 09:00 Aspirin Enteric Coated 81 Mg Tablet.Dr PO 81 mg DAILY [facility]I Administration Atorvastatin Calcium 20 mg 01/15/20 22:00 01/15/20 20:37 Atorvastatin Calcium 20 Mg Tablet PO 20 mg 2200 [facility]I Administration Furosemide 20 mg 01/15/20 09:00 01/16/20 09:00 Furosemide 20 Mg Tablet PO 20 mg DAILY [facility]I Administration Protocol Heparin Sodium (Porcine) 5,000 unit 01/15/20 01:21 01/16/20 09:00 Heparin Sodium,Porcine 5,000 Unit/Ml Vial SUBCUT 5,000 unit Q8H MANDI Administration Sodium Chloride 1,000 mls @ 100 mls/hr 01/15/20 19:00 01/16/20 06:30 Ns IVCONT 100 mls/hr .Q10H MANDI Administration Non-Formulary Medication 1 drop 01/15/20 09:00 Dextran 70-Hypromellose (Pf) EYE-BOTH QID [facility]ANDI Sodium Chloride 3 ml 01/15/20 08:00 01/16/20 09:00 0.9 % Sodium Chloride Flush 3 Ml Syringe IVFLUSH Not Given QSHIFT MANDI Time Spent With Patient Time: Total time spent is greater than 50% in coordination of care (as documented) at patient's floor/unit and/or counseling patient: Time with patient: 15 - 24 minutes
[2020-01-16] MEDS: carvediloL 3.125 MG TABLET PO (13:34)
--- NOTE | 2020-01-16 13:50 | HO.PM.IMPN ---
Subjective Subjective Date of Service: 01/16/20 Interval History: Seen in f/u for HTN crisis. Blood pressures continue to fluctuate ROS: She is confused but this seems to be Physical Exam Vital Signs: Vital Signs: Last Vital Signs Temp 98.1 F 01/16/20 11:11 Pulse 100 01/16/20 13:34 Resp 18 01/16/20 11:11 BP 200/98 H 01/16/20 13:34 Pulse Ox 97 01/16/20 11:11 Body Mass Index 25.9 Const: Other: General: Alert yet confused, no acute distress Resp: CTA bilateral CVS: S1,S2,RRR GI: +BS, NT, no distention Skin: No rash Neuro: NF Psych: appropriate affect for this patient Objective Data Current Medications Generic Name Dose Route Start Last Admin Trade Name Freq PRN Reason Stop Dose Admin Albuterol/Ipratropium 3 ml 01/15/20 00:45 01/16/20 11:42 Albuterol/Iprat 2.5/0.5mg 3 Ml Ampul.Neb INHALE 3 ml Q6H MANDI Administration Amlodipine Besylate 5 mg 01/15/20 09:00 01/16/20 12:04 Amlodipine Besylate 5 Mg Tablet PO 5 mg DAILY MANDI Administration Protocol Amlodipine Besylate 5 mg 01/16/20 09:00 01/16/20 09:00 Amlodipine Besylate 5 Mg Tablet PO 5 mg DAILY MANDI Administration Protocol Aspirin 81 mg 01/15/20 09:00 01/16/20 09:00 Aspirin Enteric Coated 81 Mg Tablet. PO 81 mg DAILY MANDI Administration Atorvastatin Calcium 20 mg 01/15/20 22:00 01/15/20 20:37 Atorvastatin Calcium 20 Mg Tablet PO 20 mg 2200 MANDI Administration Carvedilol 3.125 mg 01/16/20 13:00 01/16/20 13:34 Carvedilol 3.125 Mg Tablet PO 3.125 mg BID MANDI Administration Protocol Furosemide 20 mg 01/15/20 09:00 01/16/20 09:00 Furosemide 20 Mg Tablet PO 20 mg DAILY MANDI Administration Protocol Heparin Sodium (Porcine) 5,000 unit 01/15/20 01:21 01/16/20 09:00 Heparin Sodium,Porcine 5,000 Unit/Ml Vial SUBCUT 5,000 unit Q8H MANDI Administration Sodium Chloride 1,000 mls @ 100 mls/hr 01/15/20 19:00 01/16/20 06:30 Ns IVCONT 100 mls/hr .Q10H MANDI Administration Non-Formulary Medication 1 drop 01/15/20 09:00 Dextran 70-Hypromellose (Pf) EYE-BOTH QID MANDI Sodium Chloride 3 ml 01/15/20 08:00 01/16/20 09:00 0.9 % Sodium Chloride Flush 3 Ml Syringe IVFLUSH Not Given QSHIFT MANDI Labs CBC & Chem 7: 01/15/20 05:33 01/15/20 05:33 Assessment and Plan (1) Hypertensive emergency, no CHF: Status: Acute Assessment and Plan: 64/F with HTN, HLD presented with HTN crisis with BP 266/148 1.Accelerated HTN--with persistent high BP -Increase Norvasc to 10 -Increase Coreg to 12.5 bid (home dose) -Continue Imdur -might need additional med and further evaluation with perhaps Nephrology -IV Labetalolo or Hydralazine for optimal control 2.Diffuse intracranial stenosis: Seen by neuro recommended to continue aspirin, statin and blood control as above (3) COPD (chronic obstructive pulmonary disease): continue with home meds, duonebs. She is on chronic dexamethasone, presently at 1 mg daily (4) Hyperlipidemia: continue with statin . (5) CHF (congestive heart failure):continue with lasix.
[2020-01-16] MEDS: carvediloL 3.125 MG TABLET 9.375 MG PO (14:54)
--- NOTE | 2020-01-16 15:20 | PC.NURSE ---
Addendum entered by Paige Pan RN 01/16/20 19:11: Per Dr. Khan IV fluids stopped. Current BP 146/78. Will continue to monitor. Original Note: 1345- Pt BP 200/98 manually, pulse 100. Pt given scheduled coreg 3.125mg. Dr. Khan made aware, stated to reassess BP in both arms 1400- Right arm BP 210/100, Left arm BP 198/96. Dr. Khan updated. Given additional dose of coreg 9.375mg. Will continue to monitor.
[2020-01-16] MEDS: 0.9 % Sodium Chloride Flush 3 ML SYRINGE IVFLUSH ×2 (15:38→21:53)
[2020-01-16] MEDS: Atorvastatin Calcium 20 MG TABLET PO (21:35)
[2020-01-16] MEDS: carvediloL 12.5 MG TABLET PO (21:38)
[2020-01-16] MEDS: hydrALAZINE HCl 25 MG TABLET PO (23:54)
[2020-01-17] VITALS (15 sets, daily range): BP systolic 137–210; BP diastolic 65–110; PULSE 73–92; RESP 18–22; TEMP 36.1–36.6; O2SAT 94–98
--- NOTE | 2020-01-17 | US_ITS ---
EXAMINATION: ULTRASOUND RENAL DOPPLER CLINICAL INFORMATION: Hypertension. Rule out renal artery stenosis. COMPARISON: CT scan of the abdomen and pelvis dated 09/05/2019 and MRI of the abdomen dated 12/24/2019. TECHNIQUE: Multiple 2-D grayscale and duplex Doppler ultrasound images of the renal arteries and kidneys were obtained. There was significant limitation to the study secondary to patient shaking. The mid and distal segments of the renal arteries could not be adequately interrogated. FINDINGS: The right kidney measures 9.8 cm. There is no hydronephrosis or nephrolithiasis. A small cyst in the lower pole measures 1.3 cm. Arterial velocities are as follows: Intrarenal: Resistive index, 0.7 Right renal artery: [place]: 51 cm/sec, resistive index 0.5 The right renal vein was suboptimal evaluated. The left kidney measures 9.5 cm. There is no hydronephrosis or nephrolithiasis. Intrarenal: Resistive index 0.8 Left renal artery: [place]: 63 cm/sec, resistive index 0.7 The left renal vein was suboptimally evaluated. Aortic velocities measure up to 94 cm/sec. Renal to aortic velocity ratios are within the range of normal. Normal low resistance arterial wave forms are noted in both renal arteries. The visualized inferior vena cava is unremarkable. The urinary bladder shows no mural abnormalities. Color Doppler interrogation demonstrates bilateral ureteral jets. US/US renal doppler IMPRESSION: Limited study. No hemodynamically significant stenosis in the visualized arteries, but evaluation of the mid and distal segments of the renal arteries was suboptimal. Either a repeat ultrasound study when the patient can better cooperate or CT angiography should be considered if indicated.
[2020-01-17] MEDS: Heparin Sodium,Porcine 5,000 UNIT/ML VIAL 5000 UNIT SUBCUT ×3 (02:07→16:29)
[2020-01-17] MEDS: Albuterol/Iprat 2.5/0.5MG 3 ML AMPUL.NEB INHALE ×3 (07:33→17:49)
[2020-01-17] MEDS: 0.9 % Sodium Chloride Flush 3 ML SYRINGE IVFLUSH ×3 (08:12→21:32)
[2020-01-17] MEDS: Furosemide 20 MG TABLET PO (08:13)
[2020-01-17] MEDS: Aspirin Enteric Coated 81 MG TABLET.DR PO (08:13)
[2020-01-17] MEDS: carvediloL 12.5 MG TABLET PO ×2 (08:13→21:32)
[2020-01-17] MEDS: amLODIPine Besylate 5 MG TABLET PO ×2 (08:15)
--- NOTE | 2020-01-17 10:20 | PM.DS ---
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 Has provider been notified: No DS: Diagnosis Discharge Diagnosis (1) Hypertensive emergency, no CHF: DS: Medications Discharge Medications Home Medications: Home Medications Medication Instructions Recorded Confirmed amlodipine 5 mg tablet 5 mg PO DAILY 12/25/19 01/14/20 aspirin 81 mg tablet,delayed 81 mg PO DAILY 12/25/19 01/14/20 release atorvastatin 20 mg tablet 20 mg PO DAILY 12/25/19 01/14/20 dextran 70-hypromellose (PF) 0.1 1 drp OPHTHALMIC (EYE) QID 12/25/19 01/14/20 %-0.3 % eye drops in a dropperette furosemide 20 mg tablet 20 mg PO DAILY 12/25/19 01/14/20 ipratropium 0.5 mg-albuterol 3 mg 3 ml INHALATION Q6H 12/25/19 01/14/20 (2.5 mg base)/3 mL nebulization soln isosorbide mononitrate 30 mg 30 mg PO QAM 12/25/19 01/14/20 tablet,extended release 24 hr carvedilol [Coreg] 12.5 mg PO BID 01/16/20 01/16/20 DS: Summary Hospital Course Hospital Course: HPI Narrative: This is a 64-year-old female with significant past medical history of 5 strokes in [place], the last of which was approximately 1 year ago patient came to the [place] began living with her family. The daughter states that approximately 8:20 p.m. this evening the patient took her blood pressure, which she checks 3 times a day, and was noted to be 180s/116. as per the daughter the patient had been directed that if she was noted to have a high blood pressure she should take her hydralazine, however the daughter was scared and instead gave the patient her scheduled carvedilol 12.5 mg and noted that at 8:40 p.m. patient began having stroke-like symptoms with noted left-sided weakness and eyelid droop. As per the daughter the patient is not on any blood thinners, and is only taking aspir PMHX: HTN, HLP, CVA, YANI, COPD, CHF Hospital course: The patientw was essentially admitted for HTN emergency with extremely that has been as high with documented BP as high 266/139 and was unclear what medication the patient was taken and if taken appropriately. Imaging of head didn't show any acute stroke. He was seen by Dr. Roberts from Neurology who recommended controlling blood pressure. Cardiology also saw her helping with adjusting her medication. Initially required Iv medications including labetalol and Metoprolol. Blood pressure gradually has come down, Although she still get intermittent spikes . She is presently on Coreg 12.5 bid (home dose) and Norvasc 10 mg daily. She should follow up with PCP for further medciation adjustment. BP now ranges from 137/68 to 152/72 Time Spent with Patient Time attestation: Total time spent providing and/or coordinating discharge services: Physical Exam Vital Signs: Vital Signs: Last Vital Signs Temp 97.9 F 01/17/20 06:46 Pulse 81 01/17/20 08:15 Resp 18 01/17/20 06:46 BP 152/72 H 01/17/20 08:15 Pulse Ox 94 01/17/20 06:46 Body Mass Index 25.9 General: Alert yet confused, no acute distress Resp: CTA bilateral CVS: S1,S2,RRR GI: +BS, NT, no distention Skin: No rash Neuro: NF Psych: appropriate affect for this patient DS: Data Data Completed and Pending Labs on day of discharge: 01/14/20 21:23 ECG 12 lead EKG Stat EKG Documentation DIRECTED CT head for stroke Stat Glucose, Whole Blood Routine 01/14/20 21:24 CT angio head neck stroke Stat 01/14/20 21:27 Prothrombin Time Whole Bld POC Routine ~PT, ~INR - [facility] Routine 01/14/20 21:53 Labetalol HCL [Normodyne] 5 mg IVPUSH ONCE ONE iohexoL 350 MG/ML [Omnipaque 350 MG/ML] 100 ml IV ONCE ONE 01/14/20 22:30 Complete Blood Count Auto Diff Stat Partial Thromboplastin Time Stat Prothrombin Time INR Stat Stroke Lab Use Stat 01/14/20 22:31 Basic Metabolic Panel Stat Creatine Kinase Total Stat Magnesium Stat SARS-CoV2/FLU/RSV Stat Thyroid Stimulating Hormone Stat Troponin-I High Sensitivity Stat 01/14/20 22:41 Labetalol HCL [Normodyne] 5 mg IVPUSH ONCE ONE 01/14/20 23:01 XR chest 1V Stat 01/15/20 00:20 ECG 12 lead EKG Stat EKG Documentation DIRECTED 01/15/20 00:36 Magnesium Sulfate/D5W 1 gm in 100 ml IV ONCE 01/15/20 00:41 Transfer Order Routine 01/15/20 00:45 Isosorbide Mononitrate [Imdur] 30 mg PO DAILY 01/15/20 01:21 IV insert/maintain Q4HR 01/15/20 01:28 amLODIPine Besylate [Norvasc] 5 mg PO ONCE ONE hydrALAZINE HCl [Apresoline] 25 mg PO ONCE ONE 01/15/20 02:13 Troponin-I High Sensitivity Stat 01/15/20 05:33 Basic Metabolic Panel Routine Complete Blood Count Auto Diff Routine SLIDE REVIEW Routine 01/15/20 06:00 CA echo transthoracic complete Routine 01/15/20 09:00 Losartan Potassium [Cozaar] 100 mg PO DAILY carvediloL [Coreg] 12.5 mg PO BID hydrALAZINE HCl [Apresoline] 50 mg PO BID 01/15/20 11:00 0.9 % Sodium Chloride [Ns] 500 ml IV 500 mls/hr 01/15/20 19:00 0.9 % Sodium Chloride [Ns] 1,000 ml IVCONT 100 mls/hr 01/15/20 21:00 carvediloL [Coreg] 25 mg PO BID dexamethasone 1 mg PO BEDTIME hydrALAZINE HCl [Apresoline] 100 mg PO BID 01/16/20 00:30 Metoprolol Tartrate [Lopressor] 5 mg IVPUSH ONCE ONE 01/16/20 13:00 carvediloL [Coreg] 3.125 mg PO BID 01/16/20 14:30 carvediloL [Coreg] 9.375 mg PO ONCE ONE Laboratory Last Values WBC 10.3 X10*3/uL (4.8-10.8) 01/15/20 05:33 RBC 5.23 X10*6/uL (4.20-5.50) 01/15/20 05:33 Hgb 13.1 g/dl (12.0-16.0) 01/15/20 05:33 Hct 41.7 % (37-47) 01/15/20 05:33 MCV 79.7 fL (80-98) L 01/15/20 05:33 MCH 25.0 pg (27.0-33.0) L 01/15/20 05:33 MCHC 31.4 g/dl (31.0-35.0) 01/15/20 05:33 RDW 14.9 % (11.0-16.0) 01/15/20 05:33 Plt Count 183 X10*3/uL (160-400) 01/15/20 05:33 MPV 13.5 fL (9.4-12.3) H 01/15/20 05:33 Immature Gran % (Auto) 0.3 % (0.0-0.4) 01/15/20 05:33 Neut % (Auto) 66.8 % (45-73) 01/15/20 05:33 Lymph % (Auto) 22.3 % (20-40) 01/15/20 05:33 [place] % (Auto) 5.8 % (2-11) 01/15/20 05:33 Eos % (Auto) 3.9 % (0-4) 01/15/20 05:33 Baso % (Auto) 0.9 % (0-2) 01/15/20 05:33 Lymph # (Auto) 2.3 X10*3/uL (1.2-4.9) 01/15/20 05:33 [place] # (Auto) 0.6 X10*3/uL (0.1-1.2) 01/15/20 05:33 Eos # (Auto) 0.4 X10*3/uL (0.0-0.4) 01/15/20 05:33 Baso # (Auto) 0.1 X10*3/uL (0.0-0.2) 01/15/20 05:33 Abs Immat Gran (auto) 0.03 X10*3/uL (0.00-0.03) 01/15/20 05:33 Absolute Neuts (auto) 6.9 X10*3/uL (2.0-8.3) 01/15/20 05:33 Absolute Nucleated RBC 0.000 X10*3/uL (0.0-0.012) 01/15/20 05:33 Nucleated RBC % (auto) 0.0 /100WBC (0.0-0.2) 01/15/20 05:33 Smear Tech's Comments VERIFIED 01/15/20 05:33 PT 11.7 SEC (10.8-13.0) 01/14/20 22:30 Whole Blood PT 12.4 sec (11.1-13.5) 01/14/20 21:27 INR 1.0 (0.9-1.1) 01/14/20 22:30 Whole Blood INR 1.0 (0.9-1.1) 01/14/20 21:27 APTT 34.4 SEC (24.1-38.0) 01/14/20 22:30 Sodium 139 mmol/L (135-145) 01/15/20 05:33 Potassium 4.0 mmol/l (3.3-5.1) 01/15/20 05:33 Chloride 106 mmol/L (96-108) 01/15/20 05:33 Carbon Dioxide 26 mmol/L (22-29) 01/15/20 05:33 Anion Gap 11 (12-20) L 01/15/20 05:33 BUN 17 mg/dL (9-16) H 01/15/20 05:33 Creatinine 0.78 mg/dL (0.5-1.4) 01/15/20 05:33 Estim Creat Clear Calc 64.1 01/15/20 05:33 Estimated GFR > 60 01/15/20 05:33 POC Glucose 194 mg/dL (60-115) H 01/14/20 21:23 Random Glucose 105 mg/dL (60-115) D 01/15/20 05:33 Calcium 8.5 mg/dL (8.4-10.2) 01/15/20 05:33 Magnesium 1.9 mg/dL (1.6-2.6) 01/14/20 22:31 Total Creatine Kinase 36 U/L (26-140) 01/14/20 22:31 Troponin I High Sens 125.8 ng/L (<3.5-17.0) H 01/15/20 02:13 TSH 1.19 uIU/mL (0.32-4.0) 01/14/20 22:31 Coronavirus (PCR) NEGATIVE (Negative) 01/14/20 22:31 Influenza Type A (PCR) NEGATIVE (Negative) 01/14/20 22:31 Influenza Type B (PCR) NEGATIVE (Negative) 01/14/20 22:31 RSV RNA Qual (PCR) NEGATIVE (Negative) 01/14/20 22:31 Discharge Plan Discharge Anticipated Discharge Date/Time: 01/18/20 15:30 Patient Disposition: Home, Self-Care Referrals: [facility] [Outside] April Dowling MD [Primary Care Provider] - Discharge Medications: Continued carvedilol [Coreg] 12.5 mg Tablet 12.5 mg PO BID Qty: 60 RF: 0 isosorbide mononitrate 30 mg tablet extended release 24 hr 30 mg PO QAM Qty: 30 RF: 0 furosemide 20 mg tablet 20 mg PO DAILY RF: 0 atorvastatin 20 mg tablet 20 mg PO DAILY RF: 0 aspirin 81 mg tablet,delayed release (DR/EC) 81 mg PO DAILY RF: 0 ipratropium-albuterol 0.5 mg-3 mg(2.5 mg base)/3 mL solution for nebulization 3 ml inhalation Q6H RF: 0 dextran 70-hypromellose (PF) 0.1-0.3 % dropperette 1 drp ophthalmic (eye) QID RF: 0 Discontinued amlodipine 5 mg tablet 5 mg PO DAILY RF: 0 No Action amlodipine 10 mg tablet 10 mg PO DAILY 90 Days Qty: 90 RF: 3 hydralazine 25 mg tablet 25 mg PO TID 90 Days Qty: 270 RF: 3 Discharge Orders: Discharge Order (Routine); Ordered 01/17/20 Ordered By: Randy Khan Diet: advance to usual diet Activity on Discharge: As tolerated Discharge Date/Time: 01/18/20 17:15 Visit Report Forms: Patient Portal Discharge page Care Plan Goals: Blood pressure control and prevent stroke Health Concerns: elevated blood pressure Plan of Treatment: Take blood pressure medication as directed and follow up with your Doctor in a week
--- NOTE | 2020-01-17 11:09 | PM.PNCARD ---
Subjective Subjective Date of Service: 01/17/20 Principal diagnosis: Hypertensive emergency, reversible neurologic deficit Interval history: Patient does not report any symptoms. Blood pressure is better controlled at current time but still elevated at nighttime. Review of Systems Review of Systems Patient blood pressure is fluctuating Denies any chest pain or shortness of breath denies any new weakness or numbness Denies any abdominal pain or urinary complaints. Constitutional: Reports no additional constitutional complaints Cardiovascular: Reports no additional cardiovascular complaints Respiratory: Reports no additional respiratory complaints Gastrointestinal: Reports no additional gastrointestinal complaints Reports system reviewed and no additional complaints, except as documented and Denies Neuro-related abnormal movements Hematologic/Lymphatic: Reports no additional hematologic/lymphatic complaints Physical Exam Vital Signs: Last Vital Signs Temp 97.9 F 01/17/20 06:46 Pulse 81 01/17/20 08:15 Resp 18 01/17/20 06:46 BP 152/72 H 01/17/20 08:15 Pulse Ox 94 01/17/20 06:46 Body Mass Index 25.9 Const Other: General: Alert yet confused, no acute distress Resp: CTA bilateral CVS: S1,S2,RRR GI: +BS, NT, no distention Skin: No rash Neuro: NF Psych: appropriate affect for this patient General: cooperative, comfortable, no acute distress, alert and awake Orientation/consciousness: oriented to person, oriented to place and oriented to time Limitations: other limitations (Bed-bound) HENMT Head: Yes normal to inspection, Yes normocephalic and Yes atraumatic General nose exam: Abnormal external nose present and Nasal discharge present Eyes General: appearance normal, both eyes and all related structures Neck Neck: Yes normal visual inspection, Yes full ROM, Yes no lymphadenopathy, Yes trachea midline, Yes supple and Yes no JVD Chest Chest palpation & inspection: normal inspection of the chest Resp Effort & Inspection: normal respiratory effort and decreased respiratory effort Auscultation: clear to auscultation bilaterally and diminished lung sounds Cardio Other: General: Alert yet confused, no acute distress Resp: CTA bilateral CVS: S1,S2,RRR GI: +BS, NT, no distention Skin: No rash Neuro: NF Psych: appropriate affect for this patient Jugular venous distension: no JVD Palpation: abnormal PMI displaced PMI and heave Rate: regular rate Rhythm: regular rhythm Heart sounds: S1 normal heart sound present, S2 normal heart sound present, Murmur heart sound present and Other heart sounds present (S4 present) GI Inspection: Yes normal to inspection Palpation (GI): Soft to palpation and nontender Auscultation: normal bowel sounds General: Yes no CVA tenderness Back/Spine/Pelvis Back: no CVA tenderness Skin General skin exam: no rashes or lesions noted Neuro General: oriented to person, oriented to place, oriented to time and other (Right hemiplegia) Cranial nerves: Yes Other cranial nerve findings present (dysarthria ) Cognition (Neuro): normal cognition Motor exam (neuro): Other motor observations present (RUE strength of 3/5, RLE 2/5, LLE and LUE 5/5. Sensation preserved ) Extrem General: Yes no clubbing, cyanosis or edema Results Labs and Meds Result diagrams: 01/15/20 05:33 01/15/20 05:33 Progress Note: A&P Assessment and plan (1) Hypertensive emergency, no CHF: Status: Acute Assessment and Plan: 1. blood pressure is much better controlled. Continue current therapy. try to minimize use of peripheral vasodilators such as hydralazine. Avoid nitrates to reduce preload in patient with obstructive physiology. Low-salt diet. Patient can be discharged home. Will sign of the case at current Fall Risk Details Current Medications: Current Medications Generic Name Dose Route Start Last Admin Trade Name Freq PRN Reason Stop Dose Admin Albuterol/Ipratropium 3 ml 01/15/20 00:45 01/17/20 07:33 Albuterol/Iprat 2.5/0.5mg 3 Ml Ampul.Neb INHALE 3 ml Q6H MANDI Administration Amlodipine Besylate 5 mg 01/15/20 09:00 01/17/20 08:15 Amlodipine Besylate 5 Mg Tablet PO 5 mg DAILY MANDI Administration Protocol Amlodipine Besylate 5 mg 01/16/20 09:00 01/17/20 08:15 Amlodipine Besylate 5 Mg Tablet PO 5 mg DAILY MANDI Administration Protocol Aspirin 81 mg 01/15/20 09:00 01/17/20 08:13 Aspirin Enteric Coated 81 Mg Tablet.Dr PO 81 mg DAILY MANDI Administration Atorvastatin Calcium 20 mg 01/15/20 22:00 01/16/20 21:35 Atorvastatin Calcium 20 Mg Tablet PO 20 mg 2200 MANDI Administration Carvedilol 12.5 mg 01/16/20 21:00 01/17/20 08:13 Carvedilol 12.5 Mg Tablet PO 12.5 mg BID MANDI Administration Furosemide 20 mg 01/15/20 09:00 01/17/20 08:13 Furosemide 20 Mg Tablet PO 20 mg DAILY MANDI Administration Protocol Heparin Sodium (Porcine) 5,000 unit 01/15/20 01:21 01/17/20 08:21 Heparin Sodium,Porcine 5,000 Unit/Ml Vial SUBCUT 5,000 unit Q8H MANDI Administration Hydralazine HCl 25 mg 01/16/20 22:55 01/17/20 08:15 Hydralazine Hcl 25 Mg Tablet PO Not Given BID MANDI Protocol Non-Formulary Medication 1 drop 01/15/20 09:00 Dextran 70-Hypromellose (Pf) EYE-BOTH QID MANDI Sodium Chloride 3 ml 01/15/20 08:00 01/17/20 08:12 0.9 % Sodium Chloride Flush 3 Ml Syringe IVFLUSH 3 ml QSHIFT MANDI Administration Time Spent With Patient Time: Total time spent is greater than 50% in coordination of care (as documented) at patient's floor/unit and/or counseling patient: Time with patient: 15 - 24 minutes
--- NOTE | 2020-01-17 15:07 | MHC.CM.PN ---
MATT spoke to pts daughter Bibiana ([phone]) and informed her the pt has been cleared to return home. She reported being very happy about this. She reports she is the pts direct care provider and will be home when the pt gets there. Pt will need BLS transport which will be arranged for 1700 hours today.
--- NOTE | 2020-01-17 16:27 | MHC.CM.PN ---
CM INFORMED PTS DC BEING CANCELLED. PTS DAUGHTER AND [facility] INFORMED
[2020-01-17] MEDS: hydrALAZINE HCl 25 MG TABLET PO (16:29)
--- NOTE | 2020-01-17 17:08 | PC.NURSE ---
Addendum entered by Lynn Merchant RN 01/17/20 18:28: BP REASSESSED AT 1754 WITH BP OF 149/[address] NEFF MADE AWARE AND NOTIFIED. WILL CONTINUE TO MONITOR AT THIS TIME. Original Note: AT 1621 PATIENT BP AUTOMATIC 206/98 WITH A HR OF 76. MANUAL BP 210/110. PATIENT PRIOR WAS TO BE DISCHARGED VIA AMBULANCE. DR. NEFF MADE AWARE AND ORDERS RECEIVED TO [facility] AMBULANCE AND GIVE HYDRALAZINE 25MG PO NOW. HYDRALAZINE GIVEN AND TO REASSESS BP. WILL CONTINUE TO MONITOR AT THIS TIME.
--- NOTE | 2020-01-17 18:09 | HO.PM.IMPN ---
Subjective Subjective Date of Service: 01/17/20 Interval History: Seen in f/u for HTN crisis. Blood pressures continue to fluctuate, but better ROS: She is confused but this seem to be baseline Physical Exam Vital Signs: Vital Signs: Last Vital Signs Temp 98 F 01/17/20 16:20 Pulse 90 01/17/20 17:54 Resp 18 01/17/20 16:20 BP 149/65 H 01/17/20 17:54 Pulse Ox 96 01/17/20 16:20 Body Mass Index 25.9 General: Alert yet confused, no acute distress Resp: CTA bilateral CVS: S1,S2,RRR GI: +BS, NT, no distention Skin: No rash Neuro: NF Psych: appropriate affect for this patient Objective Data Current Medications Generic Name Dose Route Start Last Admin Trade Name Freq PRN Reason Stop Dose Admin Albuterol/Ipratropium 3 ml 01/17/20 12:00 01/17/20 17:49 Albuterol/Iprat 2.5/0.5mg 3 Ml Ampul.Neb INHALE 3 ml RQ6H MANDI Administration Amlodipine Besylate 10 mg 01/18/20 09:00 Amlodipine Besylate 5 Mg Tablet PO DAILY MANDI Protocol Aspirin 81 mg 01/15/20 09:00 01/17/20 08:13 Aspirin Enteric Coated 81 Mg Tablet.Dr PO 81 mg DAILY MANDI Administration Atorvastatin Calcium 20 mg 01/15/20 22:00 01/16/20 21:35 Atorvastatin Calcium 20 Mg Tablet PO 20 mg 2200 MANDI Administration Carvedilol 12.5 mg 01/16/20 21:00 01/17/20 08:13 Carvedilol 12.5 Mg Tablet PO 12.5 mg BID MANDI Administration Furosemide 20 mg 01/15/20 09:00 01/17/20 08:13 Furosemide 20 Mg Tablet PO 20 mg DAILY MANDI Administration Protocol Heparin Sodium (Porcine) 5,000 unit 01/15/20 01:21 01/17/20 16:29 Heparin Sodium,Porcine 5,000 Unit/Ml Vial SUBCUT 5,000 unit Q8H MANDI Administration Hydralazine HCl 25 mg 01/16/20 22:55 01/17/20 16:29 Hydralazine Hcl 25 Mg Tablet PO 25 mg BID MANDI Administration Protocol Non-Formulary Medication 1 drop 01/15/20 09:00 Dextran 70-Hypromellose (Pf) EYE-BOTH QID [facility] Sodium Chloride 3 ml 01/15/20 08:00 01/17/20 16:29 0.9 % Sodium Chloride Flush 3 Ml Syringe IVFLUSH 3 ml QSHIFT [facility] Administration Labs CBC & Chem 7: 01/15/20 05:33 01/15/20 05:33 Assessment and Plan (1) Hypertensive emergency, no CHF: Status: Acute Assessment and Plan: 64/F with HTN, HLD presented with HTN crisis with BP 266/148 1.Accelerated HTN--with persistent high BP -Continue Norvasc at 10 -Continue Coreg at 12.5 bid (home dose) -Continue Imdur -US no MISTY -check plasma cathecholamines 2.Diffuse intracranial stenosis: Seen by neuro recommended to continue aspirin, statin and blood control as above (3) COPD (chronic obstructive pulmonary disease): continue with home meds, duonebs. She is on chronic dexamethasone, presently at 1 mg daily (4) Hyperlipidemia: continue with statin . (5) CHF (congestive heart failure):continue with lasix.
[2020-01-17] MEDS: Atorvastatin Calcium 20 MG TABLET PO (21:32)
[2020-01-18] VITALS (10 sets, daily range): BP systolic 134–168; BP diastolic 69–82; PULSE 69–83; RESP 18–20; TEMP 36.6–36.8; O2SAT 95–100
[2020-01-18] MEDS: Albuterol/Iprat 2.5/0.5MG 3 ML AMPUL.NEB INHALE ×3 (00:09→11:05)
[2020-01-18] MEDS: Heparin Sodium,Porcine 5,000 UNIT/ML VIAL 5000 UNIT SUBCUT ×3 (00:56→16:39)
[2020-01-18] MEDS: 0.9 % Sodium Chloride Flush 3 ML SYRINGE IVFLUSH ×2 (00:57→16:40)
[2020-01-18] MEDS: Aspirin Enteric Coated 81 MG TABLET.DR PO (08:31)
[2020-01-18] MEDS: Furosemide 20 MG TABLET PO (08:31)
[2020-01-18] MEDS: carvediloL 12.5 MG TABLET PO (08:31)
[2020-01-18] MEDS: hydrALAZINE HCl 25 MG TABLET PO (08:31)
[2020-01-18] MEDS: amLODIPine Besylate 5 MG TABLET 10 MG PO (08:32)
--- NOTE | 2020-01-18 14:31 | MHC.CM.PN ---
pt cleared for DC today. CM contacted pts daughter, Bibiana ([phone]) who reports she will be there when the pt arrives. She reports [facility] contacted her today to initiate care but since pt was not home yet, they said they would start tomorrow. [facility] notified of DC via [employer]. Pt will be transported via [facility] BLS at 1700 hours
== END 2020-01-18 17:15 | disposition home or self-care (01) | DRG 305 ==
LOC: HO.ED 22:39 → HO.IMC 01-15 00:56
PROVIDERS: Admitting Provider Internal Medicine; Emergency Provider Student in an Organized Health Care Education/Training Program; PCP Internal Medicine; Visit Provider Internal Medicine
DX: I16.1 Hypertensive emergency (principal); G81.94 Hemiplegia, unspecified affecting left nondominant side; Z94.0 Kidney transplant status; G47.33 Obstructive sleep apnea (adult) (pediatric); N18.9 Chronic kidney disease, unspecified; I13.0 Hypertensive heart and chronic kidney disease with heart failure and stage 1 through stage 4 chronic kidney disease, or unspecified chronic kidney disease; E78.5 Hyperlipidemia, unspecified; Z86.73 Personal history of transient ischemic attack (TIA), and cerebral infarction without residual deficits; I50.9 Heart failure, unspecified; Z20.828 Contact with and (suspected) exposure to other viral communicable diseases; Z79.82 Long term (current) use of aspirin; Z79.899 Other long term (current) drug therapy
CPT/HCPCS: 0241U; 36415; 51798; 70450; 70496; 70498; 71045; 80048; 82550; 82947; 83735; 84443; 84484; 85025; 85610; 85730; 93005; 93306; 93975; 94640; 94660; 96365; 96375; 96376; 99285; J3475; Q9967

== ENCOUNTER → 2020-01-26 11:39 | Outpatient (BNVA) | payer MEDICARE, MEDICAID, SELFPAY | PROVIDERS: PCP Internal Medicine; Referring Provider Internal Medicine; Visit Provider Internal Medicine Gastroenterology | DX: K76.89 Other specified diseases of liver (principal); K59.00 Constipation, unspecified; I10 Essential (primary) hypertension | CPT/HCPCS: Q3014 ==

== ENCOUNTER → 2020-02-25 12:08 | Outpatient (BNVA) | payer MEDICARE, MEDICAID, SELFPAY | PROVIDERS: PCP Internal Medicine; Visit Provider Internal Medicine | DX: Z13.89 Encounter for screening for other disorder (principal) | CPT/HCPCS: Q3014 ==

== ENCOUNTER → 2020-03-01 13:03 | Outpatient (REF) | payer MEDICARE, MEDICAID, SELFPAY ==
--- NOTE | 2020-03-01 13:11 | CA_ITS ---
Transthoracic Echocardiogram Patient (Last, First, Middle): Zohra Carey, Gender: Female Date of : 1955 Age: 64 Procedure Date: 03/01/2020 Procedure Type: Transthoracic Echocardiogram Location: OP Height: 157.48 cm Weight: 61.24 kg BSA: 1.62 m2 Heart Rate: bpm BP: 155 / 70 mmHg Bone Process Operator: DSG Referring MD: Stefan Beckman MD Symptoms: G47.33 - Obstructive sleep apnea (adult) (pediatric) Study Quality: Fair ECG Rhythm: Sinus Conclusions: - The left ventricular systolic function is hyperdynamic. The visually estimated ejection fraction is >70%. - Small gradient across LVOT but no obstruction. - There is mild mitral valve regurgitation. Findings Left Ventricle Normal left ventricular cavity size. There is moderately increased left ventricular wall thickness. The left ventricular systolic function is hyperdynamic. The visually estimated ejection fraction is >70%. There is no evidence of regional wall motion abnormalities. E/E prime ratio is >15, consistent with elevated filling pressures. Evidence suggests grade I (mild) diastolic dysfunction. Small gradient across LVOT but no obstruction. Right Ventricle Normal right ventricular cavity size and systolic function. Atria The left atrium is moderately dilated. The right atrium is normal in size. Aortic Valve The aortic valve was not well visualized. There is no aortic valve stenosis. There is trace (trivial) aortic valve regurgitation. Mitral Valve There is mild anterior mitral leaflet thickening. There is mild mitral valve regurgitation. There is no mitral valve stenosis. Pulmonic Valve The pulmonic valve was not well visualized. Tricuspid Valve Normal tricuspid valve structure. There is trace tricuspid valve regurgitation. The pulmonary artery systolic pressure is normal. Great Vessels The aortic annulus, sinuses of valsalva, and asc aorta are normal in size. Venous The inferior vena cava is normal in size and collapses greater than 50% with inspiration. Pericardium/Pleural There is no evidence of pericardial effusion. Prior Study Comparison No significant change compared to prior study dated: 01/15/2020. Recommendations, Care & Conclusions No obvious valvular pathology seen on this study. Measurements M-Mode Liner Measurements Normals - Women/Men LVIDd: 3.65 3.9-5.3/4.2-5.9 cm LVIDd Index: 2.25 1.9-3.2 cm/m2 LVIDs: 1.79 2.0-3.8 cm M-Mode Volumes LV EDV: 56.30 LV ESV: 9.58 2D Linear Measurements IVSd: 1.49 0.6-0.9/0.6-1.0 cm LVIDd: 3.39 3.9-5.3/4.2-5.9 cm LVIDd Index: 2.09 2.4-3.2/2.2-3.1 cm/m2 LVIDs: 1.49 2.0-3.6 cm LVPWd: 1.38 0.7-1.1 cm Ao Root: 2.40 2.1-3.5 cm LA Diam: 3.90 2.7-3.8/3.0-4.0 cm LAIDs Index: 2.41 1.5-2.3 cm/m2 LV Mass: 214.61 67-162/88-224 g LV Mass Index: 132.48 43-95/49-115 g/m2 LVOT Diam: 1.80 3.0+(-)1.3 cm 2D Systolic Function EF 4C: 80.50 >55% M-Mode Systolic Function FS: 51.00 27-47/25-43% LVEF: 83.00 >55% Mitral Valve MV Pk E: 0.97 MV PK A: 1.34 MV Decel Time: 151.00 E/A: 0.70 E'Lateral: 7.16 E'Medial: 4.74 E/E' Med: 20.50 E/E' Lat: 13.50 PHT: 44.00 MVA PHT: 5.00 Decel [place]: 6.44 Aortic Valve AoV Pk Lit: 1.55 AoV Pk Grad: 10.00 LVOT LVOT Pk Lit: 1.34 LVOT Mn Lit: 1.02 LVOT VTI: 0.26 LVOT Pk Grad: 7.00 LVOT Mn Grad: 5.00 LVOT Diam: 1.80 LVOT Area: 2.54 Diastolic Function MV Pk E: 0.97 MV Pk A: 1.34 E/A: 0.70 E'Medial: 4.74 E/E' Med: 20.50 E' Laterial: 7.16 E/E' Lat: 13.50 Tricuspid Valve TR Pk Lit: 2.46 TR Pk Grad: 24.00 RA Press: 3.00 RVSP: 27.00 Great Vessels Aorta Ao Root-2D: 2.40 2.0-3.7 cm Updated in Other Vendor System with Status of Final Anthony Gregg MD electronically signed on 03/01/2020 4:40:49 PM with status of Final
== END ==
LOC: HO.CARD 13:03
PROVIDERS: PCP Internal Medicine; Visit Provider Hospitalist
DX: R01.1 Cardiac murmur, unspecified (principal); G47.33 Obstructive sleep apnea (adult) (pediatric)
CPT/HCPCS: 93306

== ENCOUNTER → 2020-03-17 13:59 | Outpatient (BNVA) | payer MEDICARE, MEDICAID, SELFPAY | PROVIDERS: PCP Internal Medicine; Visit Provider Obstetrics & Gynecology | DX: D21.9 Benign neoplasm of connective and other soft tissue, unspecified (principal) | CPT/HCPCS: 99202 ==

== ENCOUNTER → 2020-03-26 14:42 | Outpatient (BNVA) | payer MEDICARE, MEDICAID, SELFPAY | PROVIDERS: PCP Internal Medicine; Visit Provider Hospitalist | DX: J44.9 Chronic obstructive pulmonary disease, unspecified (principal); G47.33 Obstructive sleep apnea (adult) (pediatric) | CPT/HCPCS: 99212 ==

== ENCOUNTER 2020-03-31 15:03 | Outpatient (REF) | payer MEDICARE, MEDICAID, SELFPAY ==
--- NOTE | ~2020-03-31 | US_ITS ---
EXAMINATION: US PELVIS CLINICAL INFORMATION: Uterine fibroids COMPARISON: Previous CT of the abdomen and pelvis August 2019 TECHNIQUE: Transabdominal pelvic ultrasound was performed. FINDINGS: The uterus is anteverted and measures 8.2 x 5 x 7.6 cm in dimension. There are multiple large uterine fibroids seen. There is a 2.6 x 2.7 x 3.6 cm fibroid in the anterior lower uterine segment, 3.5 x 3 x 4 cm fibroid in the left anterior cornual region, 5.9 x 4.8 x 5.2 cm fibroid in the posterior uterine body and 2.7 x 2.3 x 2.5 cm fibroid in the uterine fundus. The endometrium is not well visualized secondary to the fibroids. The ovaries are not seen. There is no fluid in the pelvis. US/US pelvic complete IMPRESSION: Limited exam. Fibroid uterus. At least 4 fibroids are seen, largest measuring 5.9 x 4.8 x 5.2 cm. Endometrium and ovaries not seen.
== END 2020-03-31 15:04 | disposition home or self-care (01) ==
LOC: HO.US 15:03
PROVIDERS: Visit Provider Obstetrics & Gynecology
DX: D21.9 Benign neoplasm of connective and other soft tissue, unspecified (principal)
CPT/HCPCS: 76856

== ENCOUNTER → 2020-04-08 11:50 | Outpatient (BNVA) | payer MEDICARE, MEDICAID, SELFPAY | PROVIDERS: PCP Internal Medicine; Visit Provider Obstetrics & Gynecology | DX: Z13.89 Encounter for screening for other disorder (principal) | CPT/HCPCS: Q3014 ==

== ENCOUNTER → 2020-05-03 13:45 | Outpatient (BNVA) | payer MEDICARE, MEDICAID, SELFPAY | PROVIDERS: PCP Internal Medicine; Visit Provider Internal Medicine ==

== ENCOUNTER → 2020-05-24 09:55 | Outpatient (BNVA) | payer MEDICARE, MEDICAID, SELFPAY | PROVIDERS: PCP Internal Medicine; Visit Provider Internal Medicine | DX: Z13.89 Encounter for screening for other disorder (principal) | CPT/HCPCS: Q3014 ==

== ENCOUNTER → 2021-06-16 14:31 | Outpatient (RCR) | payer MEDICARE, MEDICAID, SELFPAY | END | disposition home or self-care (01) | LOC: HO.PTCHIC 03-01 14:41 | PROVIDERS: PCP Internal Medicine; Visit Provider Internal Medicine | DX: R53.1 Weakness (principal) | CPT/HCPCS: 97163 ==

== ENCOUNTER 2022-09-18 10:51 | Outpatient (AMB) | payer MEDICARE, MEDICAID, SELFPAY ==
[2022-09-18 10:58] VITALS: BP 178/98; PULSE 87; O2SAT 96
--- NOTE | 2022-09-18 10:58 | A.OFFPC_ITS ---
Vital Signs 09/18/22 10:58 Height 5 ft BMI Reason not done Patient refused/unable BP 178/98 H Blood Pressure Location Lt brachial Position Sitting Pulse 87 Pulse Source Pulse Oximeter Pulse Oximetry (%) 96 Oxygen Delivery Method Room Air Intake Visit Reasons: Follow up, Medication Snuff Grinder Required: No Accompanied by: Self / Same As Patient Allergies No Known Allergies [No Known Allergies*] Allergy (Verified 09/18/22 11:14) Medication List - Last Reconciled 09/18/22 by April Zelaya MD amlodipine 10 mg PO DAILY 90 days aspirin 81 mg PO DAILY 90 days atorvastatin 20 mg PO DAILY 90 days carbamide peroxide 6.5% 60 drps otic (ears) PRN carvedilol (Coreg) 12.5 mg PO BID 90 days dextran 70-hypromellose (PF) 0.1-0.3 % 1 drp ophthalmic (eye) QID 30 days furosemide 20 mg PO DAILY 90 days hydralazine 25 mg PO TID 90 days ipratropium-albuterol 0.5 mg-3 mg(2.5 mg base)/3 mL 3 mL inhalation Q6H isosorbide mononitrate ER 30 mg PO QAM 90 days polyethylene glycol 3350 17 grams PO DAILY underpads (Certainty Underpads) Use 1 to 2 Underpads at bedtime [wipes As directed] Tobacco use date assessed: 09/18/22 Fall risk assessment: No Falls in past year Last assessed Fall Risk: 09/18/22 Dental Screening Dental Screen Date: 09/18/22 Did you have a dental visit in the last 12 months?: Yes Did you have a dental problem in the last 6 months where you did not have access to dental care?: No Was dental information given to patient?: Patient has dentist HPI HPI Comments History of Present Illness Details This is a 66-year-old female with COPD, congestive heart failure, history of stroke with right hemiplegia as residual deficit, urge urinary incontinence, hypertension and adrenal adenoma that comes today accompanied by daughter which is the chief deputy coroner to reestablish care. Patient is wheelchair- bound secondary to her strokes. Will be refer her again to pulmonology for her COPD. I will order echocardiogram and refer her to cardiology for her congestive heart failure. She declines gaining 5 lb in a week. She is oriented to person but not to time or place. Needs to be in a wheelchair due to right hemiplegia secondary to stroke. On aspirin for secondary prophylaxis of stroke. Has urge urinary incontinence and will benefit from diapers. Blood pressure elevated but she has been out of her medications. Blood pressure will be recheck in 3 weeks by nurse navigator. She used to see endocrinology for her adrenal adenoma and would like to be refer again. Last MRI of the abdomen was years ago showing a right adrenal nodule consistent with lipid rich benign adenoma. Denies any chest pain or shortness of breath. No sacral ulcers. FOR[facility]LY [facility] Medical History Abnormal tissue in uterus Adrenal adenoma CHF (congestive heart failure) COPD (chronic obstructive pulmonary disease) CVA (cerebral vascular accident) Dyslipidemia Essential hypertension History of stroke Hyperlipidemia Hypertension Hypertensive arterionephrosclerosis of transplanted kidney Hypertensive emergency, no CHF Hypertensive hypertrophic cardiomyopathy Liver cyst Liver mass Murmur, cardiac Myocardial injury YANI (obstructive sleep apnea) Right hemiplegia Saccular aneurysm Screening for colon cancer Urge urinary incontinence Uterine mass Weakness Wheelchair bound Surgical History No pertinent past surgical history Family History Mother No problems noted. Father No problems noted. Daughter No problems noted. Sister No problems noted. Brother No problems noted. Social History (Updated 09/18/22 @ 11:18 by April Zelaya MD) Household Members: Children Household Members Other:: pt lives with daughter Housing: Apartment Do you presently have visiting nurse or other home services: No Alcohol intake: former Patient Tobacco Use Status: Never used Tobacco Tobacco use type: Cigarette e-Cigarette/Vaping Use: Never Used Second Hand Smoke Exposure: No service: No Current occupational status: disabled Cognitive needs: No Hearing needs: No Vision needs: No Questionnaire PHQ-9 Over the last 2 weeks, how often have you been bothered by any of the following problems? 1. Little interest or pleasure in doing things: not at all 2. Feeling down, depressed, or hopeless: not at all 3. Trouble falling or staying asleep, or sleeping too much: not at all 4. Feeling tired or having little energy: not at all 5. Poor appetite or overeating: not at all 6. Feeling bad about yourself - or that you are a failure or have let yourself or your family down: not at all 7. Trouble concentrating on things, such as reading the newspaper or watching television: not at all 8. Moving or speaking so slowly that other people could have noticed. Or the opposite - being so fidgety or restless that you have been moving around a lot more than usual: not at all 9. Thoughts that you would be better off or of hurting yourself in some way: not at all Total score: 0 Depression Screening Interpretation: Negative 81855 - PHQ-9 Billing: Yes Source: Developed by Drs. Wolf Hill, Hoa Smith, Zurdo Kline and colleagues, with an educational danielle from [email or web address]. Thrive Questionnaire Date Thrive assessed: 09/18/22 I am a: Patient What is your living situation today?: I have a steady place to live Within the past 12 months, did the food you bought not last and you didn't have the money to get more?: Never true Within the past 12 months, did you worry whether your food would run out before you got money to buy more?: Never true Do you have trouble paying for medicines?: No Do you have trouble getting transportation to medical appointments?: No Do you have trouble paying your heating and electricity bill?: No Do you have trouble taking care of your child, family member or friend?: No Do you have trouble with day-to-day activities such as bathing, preparing meals, shopping, managing finances, etc.?: No Are you currently unemployed and looking for a job?: No Are you interested in more education?: No Currently or been in a relationship where the following occur: no concerns reported AUDIT C Alcohol Use Questionnaire (AUDIT-C) 1. How often do you have a drink containing alcohol?: Never Total Score: 0 SULAIMAN-7 AMB Questionnaire SULAIMAN-7 Date SULAIMAN - 7 assessed: 09/18/22 Feeling nervous, anxious, or on edge: 0 = Not at all Not being able to stop or control worryin = Not at all Worrying too much about different things: 0 = Not at all Trouble relaxin = Not at all Being so restless that it is hard to sit still: 0 = Not at all Becoming easily annoyed or irritable: 0 = Not at all Feeling afraid as if something awful might happen: 0 = Not at all Total SULAIMAN-7 score (0-4 normal; 5-9 mild; 10-14 moderate; 15-21 severe): 0 Source: Developed by Drs. Wolf Hill, Hoa Smith, Zurdo Kline and colleagues, with an educational danielle from [email or web address]. SULAIMAN-7 Assessment Billing SULAIMAN-7 Assessment Tool: SULAIMAN-7 Assessment 22977 Review of Systems Const All systems reviewed & are unremarkable except as noted in HPI and below Eyes Reports no additional complaints, Denies change in vision and Denies other visual disturbances Card Denies chest pain at rest, Denies chest pain with activity, Denies edema, Denies irregular heart rhythm, Denies claudication, Denies dyspnea, Denies dyspnea on exertion, Denies orthopnea, Denies paroxysmal nocturnal dyspnea and Denies slow heart rate Resp Denies cough, Denies dyspnea and Denies dyspnea on exertion GI Denies abdominal pain, Denies change in bowel habits, Denies excessive flatus, Denies nausea and Denies vomiting Denies urinary incontinence, Denies urinary hesitancy and Denies urinary urgency Musc Denies atrophy, Denies deformity and Denies limited range of motion Skin/Breast Denies bleeding lesions, Denies changing lesions and Denies rash Neuro Reports Abnormal speech present and Reports focal weakness Physical exam (Primary Care) Vital Signs: Last Vital Signs Pulse 87 09/18/22 10:58 BP 178/98 H 09/18/22 10:58 Pulse Ox 96 09/18/22 10:58 Oxygen Delivery Method Room Air 09/18/22 10:58 Tobacco/Smoking Status: Tobacco use Status Tobacco use date assessed 09/18/22 09/18/22 11:05 Patient Tobacco Use Status Never used Tobacco 09/18/22 11:05 Tobacco use type Cigarette 09/18/22 11:05 e-Cigarette/Vaping Use Never Used 09/18/22 11:05 PHQ-9: PHQ-9 Score PHQ-9: Total score 0 09/18/22 11:05 Depression Screening Interpretation: Negative Thrive Assessment: Date of Thrive Assessment Date Thrive assessed 09/18/22 09/18/22 11:05 Currently or been in a relationship where the following occur: no concerns reported Const Orientation/consciousness: oriented to person Limitations: wheelchair Eyes General: appearance normal, both eyes and all related structures Eyelids: Yes eyelids normal Conjunctivae: conjunctivae normal Neck Neck: Yes normal visual inspection and Yes supple Resp Effort & Inspection: normal respiratory effort Auscultation: clear to auscultation bilaterally Cardio Jugular venous distension: no JVD Rate: regular rate Rhythm: regular rhythm Heart sounds: Murmur heart sound present systolic Neuro General: oriented to person Speech: Abnormal speech present Motor exam (neuro): Abnormal motor strength present (5/5 in left side, 2/5 in right side) Assessment and Plan Assessment & Plan (1) COPD (chronic obstructive pulmonary disease): Code(s): J44.9 - Chronic obstructive pulmonary disease, unspecified Qualifiers: COPD type: chronic bronchitis Chronic bronchitis type: simple Qualified Code(s): J41.0 - Simple chronic bronchitis Plan: Use rescue inhaler as needed. Follow-up with pulmonology. (2) CHF (congestive heart failure): Code(s): I50.9 - Heart failure, unspecified Qualifiers: Heart failure type: unspecified Heart failure chronicity: chronic Qualified Code(s): I50.9 - Heart failure, unspecified Plan: Continue carvedilol. The goal is to not gain 5 lb in a week. Follow-up with Cardiology. (3) Right hemiplegia: Code(s): G81.91 - Hemiplegia, unspecified affecting right dominant side Plan: Continue wheelchair as needed. (4) Essential hypertension: Code(s): I10 - Essential (primary) hypertension Plan: Restart amlodipine and hydralazine as soon as possible. Blood pressure goal is equal or less than 130/80. Recheck blood pressure in 3 weeks by nurse navigator. (5) Adrenal adenoma: Code(s): D35.00 - Benign neoplasm of unspecified adrenal gland Qualifiers: Laterality: unspecified laterality Qualified Code(s): D35.00 - Benign neoplasm of unspecified adrenal gland Plan: CT scan of abdomen ordered. Referred to endocrinology. (6) Urge urinary incontinence: Code(s): N39.41 - Urge incontinence Plan: Continue the use of diapers and bed under pads as needed. Orders: Orders Comprehensive [facility]. Panel Fast Today I50.9 - Heart failure, unspecified NT-proBNP Today I50.9 - Heart failure, unspecified CA echo transthoracic complete Today I50.9 - Heart failure, unspecified CT abdomen pelvis wo IV con Today D35.00 - Benign neoplasm of unspecified adrenal gland Lipid Panel Today E78.5 - Hyperlipidemia, unspecified Complete Blood Count Auto Diff Today D64.9 - Anemia, unspecified, R53.1 - Weakness Vitamin D 25-OH Total Today E55.9 - Vitamin D deficiency, unspecified, R53.1 - Weakness Vitamin B12 and Folate Today E53.8 - Deficiency of other specified B group vitamins, R53.1 - Weakness Referrals Pulmonary Medicine Referral J41.0 - Simple chronic bronchitis Endocrinology Referral D35.00 - Benign neoplasm of unspecified adrenal gland Cardiology Referral I50.9 - Heart failure, unspecified Medications: New [adult diapers briefs] As directed 240 ea 11RF N39.41 - Urge incontinence Changed From ipratropium-albuterol 0.5 mg-3 mg(2.5 mg base)/3 mL 3 mL inhalation Q6H To ipratropium-albuterol 0.5 mg-3 mg(2.5 mg base)/3 mL 3 mL inhalation Q6H 30 days 90 mL 6RF From polyethylene glycol 3350 17 grams PO DAILY To polyethylene glycol 3350 17 grams PO DAILY 30 days PRN 30 ea 2RF constipation Refilled amlodipine 10 mg PO DAILY 90 days 90 tabs 3RF aspirin 81 mg PO DAILY 90 days 90 tabs 3RF atorvastatin 20 mg PO DAILY 90 days 90 tabs 3RF E78.5 - Hyperlipidemia, unspecified carvedilol (Coreg) 12.5 mg PO BID 90 days 180 tabs 3RF furosemide 20 mg PO DAILY 90 days 90 tabs 3RF hydralazine 25 mg PO TID 90 days 270 tabs 3RF isosorbide mononitrate ER 30 mg PO QAM 90 days 90 tabs 1RF underpads (Certainty Underpads) Use 1 to 2 Underpads at bedtime 150 ea 11RF N 39.41 - Urge incontinence Coding Level of Care Code Est Pt Level 4 (53453) Diagnoses COPD (chronic obstructive pulmonary disease) J41.0 COPD type: chronic bronchitis Chronic bronchitis type: simple CHF (congestive heart failure) I50.9 Heart failure type: unspecified Heart failure chronicity: chronic Right hemiplegia G81.91 Essential hypertension I10 Adrenal adenoma D35.00 Laterality: unspecified laterality Urge urinary incontinence N39.41 Additional Codes SULAIMAN-7 Assessment Billing - SULAIMAN-7 Assessment Tool: SULAIMAN-7 Assessment 09564 ([id number]) Time Spent (min) 26
== END 2022-09-18 11:27 | disposition home or self-care (01) ==
PROVIDERS: PCP Internal Medicine; Visit Provider Internal Medicine
DX: J41.0 Simple chronic bronchitis (principal); I11.0 Hypertensive heart disease with heart failure; I50.9 Heart failure, unspecified; G81.91 Hemiplegia, unspecified affecting right dominant side; D35.00 Benign neoplasm of unspecified adrenal gland; N39.41 Urge incontinence
CPT/HCPCS: 99214

== ENCOUNTER 2024-12-01 08:34 | Outpatient (AMB) | payer MEDICARE, MEDICAID, SELFPAY ==
[2024-12-01 08:45] VITALS: BP 190/108; PULSE 112; TEMP 36.1; O2SAT 95
--- NOTE | 2024-12-01 08:45 | MHC.PC.OV ---
Vital Signs 12/01/24 08:45 Height 5 ft BMI Reason not done Patient refused/unable BP 190/108 H Blood Pressure Location Lt brachial Position Sitting Pulse 112 H Pulse Source Pulse Oximeter Temp 97.0 F Temp Source Temporal Artery Scan Pulse Oximetry (%) 95 Oxygen Delivery Method Room Air Intake Visit Reasons: annual V Belt Coverer Required: No Accompanied by: Daughter Allergies No Known Allergies (No Known Allergies*) Allergy (Verified 12/01/24 08:58) Medication List - Last Reconciled 12/01/24 by April Zelaya MD [adult diapers briefs As directed] amlodipine 10 mg PO DAILY 90 days aspirin 81 mg PO DAILY 90 days atorvastatin 20 mg PO DAILY 90 days carbamide peroxide 6.5% 60 drps otic (ears) PRN carvedilol (Coreg) 12.5 mg PO BID 90 days dextran 70-hypromellose (PF) 0.1-0.3 % 1 drp ophthalmic (eye) QID 30 days furosemide 20 mg PO DAILY 90 days hydralazine 25 mg PO TID 90 days ipratropium-albuterol 0.5 mg-3 mg(2.5 mg base)/3 mL 3 mL inhalation Q6H 30 days isosorbide mononitrate ER 30 mg PO QAM 90 days polyethylene glycol 3350 17 grams PO DAILY PRN 30 days underpads (Certainty Underpads) Use 1 to 2 Underpads at bedtime [wipes As directed] Tobacco use date assessed: 12/01/24 Fall risk assessment: No Falls in past year Last assessed Fall Risk: 12/01/24 Dental Screening Dental Screen Date: 12/01/24 Did you have a dental visit in the last 12 months?: No Did you have a dental problem in the last 6 months where you did not have access to dental care?: No Was dental information given to patient?: No HPI HPI Comments History of Present Illness Details The patient is a 69-year-old female presenting for an annual physical examination and management of chronic conditions. She has a history of essential hypertension, which has been poorly controlled due to non-adherence to medication, as she has not taken her antihypertensive medications recently. Her current medications include amlodipine, aspirin, atorvastatin, carvedilol, furosemide, hydralazine, and isosorbide. The patient also has a history of heart failure, for which she is on carvedilol and furosemide. She has not had any recent echocardiograms since 2020, and a repeat is planned. 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 Physical therapy is being considered to improve her functional status. The patient has a history of COPD and asthma, for which she was previously under the care of Dr. Beckman. She has not had any recent exacerbations reported during this visit. Additionally, she has a history of an adrenal adenoma, which was previously monitored by Dr. Caldwell. Preventative care measures discussed include colon cancer screening with a stool test, mammography, bone densitometry, and vaccinations for pneumonia and influenza. [facility] Medical History Urge urinary incontinence Uterine mass Hypertension Liver mass Adrenal adenoma Wheelchair bound Right hemiplegia History of stroke Dyslipidemia Essential hypertension Screening for colon cancer Liver cyst Saccular aneurysm Abnormal tissue in uterus Weakness Hypertensive arterionephrosclerosis of transplanted kidney Myocardial injury Hypertensive hypertrophic cardiomyopathy CHF (congestive heart failure) Hyperlipidemia Hypertensive emergency, no CHF CVA (cerebral vascular accident) Murmur, cardiac YANI (obstructive sleep apnea) COPD (chronic obstructive pulmonary disease) Surgical History No pertinent past surgical history Family History Mother No problems noted. Father No problems noted. Daughter No problems noted. Sister No problems noted. Brother No problems noted. Social History Household Members: Children Household Members Other:: pt lives with daughter Housing: Apartment Do you presently have visiting nurse or other home services: No Alcohol intake: former Patient Tobacco Use Status: Never used Tobacco Tobacco use type: Cigarette e-Cigarette/Vaping Use: Never Used Second Hand Smoke Exposure: No service: No Current occupational status: disabled Cognitive needs: No Hearing needs: No Vision needs: No Questionnaire PHQ-9 Over the last 2 weeks, how often have you been bothered by any of the following problems? 1. Little interest or pleasure in doing things: not at all 2. Feeling down, depressed, or hopeless: not at all 3. Trouble falling or staying asleep, or sleeping too much: not at all 4. Feeling tired or having little energy: not at all 5. Poor appetite or overeating: not at all 6. Feeling bad about yourself - or that you are a failure or have let yourself or your family down: not at all 7. Trouble concentrating on things, such as reading the newspaper or watching television: not at all 8. Moving or speaking so slowly that other people could have noticed. Or the opposite - being so fidgety or restless that you have been moving around a lot more than usual: not at all 9. Thoughts that you would be better off or of hurting yourself in some way: not at all Total score: 0 Depression Screening Interpretation: Negative Depression Screening Done: Yes 89340 - PHQ-9 Billing: Yes Source: Developed by Drs. Wolf Hill, Hoa Smith, Zurdo Kline and colleagues, with an educational danielle from [employer]. Thrive Questionnaire Date Thrive assessed: 09/18/22 I am a: Parent/Caregiver What is your living situation today?: I have a steady place to live Within the past 12 months, did the food you bought not last and you didn't have the money to get more?: Never true Within the past 12 months, did you worry whether your food would run out before you got money to buy more?: Never true Do you have trouble paying for medicines?: No Do you have trouble getting transportation to medical appointments?: No Do you have trouble paying your heating and electricity bill?: No Do you have trouble taking care of your child, family member or friend?: No Do you have trouble with day-to-day activities such as bathing, preparing meals, shopping, managing finances, etc.?: No Are you currently unemployed and looking for a job?: I choose not to answer this question Are you interested in more education?: I choose not to answer this question Please select the resources that you would like help with: None Currently or been in a relationship where the following occur: No concerns reported THRIVE Score: 0 AUDIT C Alcohol Use Questionnaire (AUDIT-C) 1. How often do you have a drink containing alcohol?: Never 3. How often do you have six or more drinks on one occasion?: Never Total Score: 0 Score Reviewed/Action Taken: No SULAIMAN-7 AMB Questionnaire SULAIMAN-7 Date SULAIMAN - 7 assessed: 12/01/24 Feeling nervous, anxious, or on edge: 0 = Not at all Not being able to stop or control worryin = Not at all Worrying too much about different things: 0 = Not at all Trouble relaxin = Not at all Being so restless that it is hard to sit still: 0 = Not at all Becoming easily annoyed or irritable: 0 = Not at all Feeling afraid as if something awful might happen: 0 = Not at all Total SULAIMAN-7 score (0-4 normal; 5-9 mild; 10-14 moderate; 15-21 severe): 0 Source: Developed by Drs. Wolf Hill, Hoa Smith, Zurdo Kline and colleagues, with an educational danielle from [employer]. SULAIMAN-7 Assessment Billing SULAIMAN-7 Assessment Tool: SULAIMAN-7 Assessment 49343 Review of Systems Const All systems reviewed & are unremarkable except as noted in HPI and below Card Denies chest pain at rest, Denies chest pain with activity, Denies edema, Denies irregular heart rhythm, Denies claudication, Denies dyspnea, Denies dyspnea on exertion, Denies orthopnea, Denies paroxysmal nocturnal dyspnea and Denies slow heart rate Resp Denies cough, Denies dyspnea and Denies dyspnea on exertion GI Denies abdominal pain, Denies change in bowel habits, Denies excessive flatus, Denies nausea and Denies vomiting Physical exam (Primary Care) Vital Signs: Last Vital Signs Temp 97.0 F 12/01/24 08:45 Pulse 112 H 12/01/24 08:45 BP 190/108 H 12/01/24 08:45 Pulse Ox 95 12/01/24 08:45 Oxygen Delivery Method Room Air 12/01/24 08:45 Tobacco/Smoking Status: Tobacco use Status Tobacco use date assessed 12/01/24 12/01/24 08:49 Patient Tobacco Use Status Never used Tobacco 12/01/24 08:49 Tobacco use type Cigarette 12/01/24 08:49 e-Cigarette/Vaping Use Never Used 12/01/24 08:49 PHQ-9: PHQ-9 Score PHQ-9: Total score 0 12/01/24 09:25 Depression Screening Interpretation: Negative Thrive Assessment: Date of Thrive Assessment Date Thrive assessed 09/18/22 12/01/24 08:49 Currently or been in a relationship where the following occur: No concerns reported Const Limitations: wheelchair HENMT Head: Yes normal to inspection, Yes normocephalic and Yes atraumatic Ears: external ears normal Eyes General: appearance normal, both eyes and all related structures Eyelids: Yes eyelids normal Conjunctivae: conjunctivae normal Neck Neck: Yes normal visual inspection and Yes supple Resp Effort & Inspection: normal respiratory effort Auscultation: clear to auscultation bilaterally Cardio Jugular venous distension: no JVD Rate: regular rate Rhythm: regular rhythm Heart sounds: S1 normal heart sound present and S2 normal heart sound present GI Inspection: Yes normal to inspection Palpation (GI): Soft to palpation and nontender Auscultation: normal bowel sounds Skin General skin exam: no rashes or lesions noted Neuro General: no focal motor deficits Motor exam (neuro): Abnormal motor strength present (4/5 left, 1/5 right) Extrem Other: Right hand permanently close not able to actively open it, right foot inwardly deviated Psych Appearance: grossly normal Office Procedures Flu Questionnaire Does the patient have a severe egg allergy?: No Does the patient have severe life threatening allergies?: No Does the patient have a fever or illness today?: No Has the patient ever had Guillain-[place] Syndrome?: No Has the patient ever had any past reaction to a flu shot?: No Immunizations Fluarix [id number] (PF) 45 mcg (15 mcg x 3)/0.5 mL IM syringe Performing Provider: April Zelaya MD Performing Location: [facility] Administered by: REBECA Flores on 12/01/24 09:28 Dose Route Admin Location Dispensed Lot Number Expiration Date [facility] Coater Helper 0.5 mL IM Left Deltoid 0.5 mL [id number] 08/11/25 [id number] [employer] VIS Given Date VIS Provided VIS Publication Date 12/01/24 Single Vaccine 24 Eligibility Eligibility Date Funding Source Not [facility] Eligible 12/01/24 Private pneumoc 20-inessa conj-dip cr(PF) 0.5 mL IM syringe Performing Provider: April Zelaya MD Performing Location: [facility] Administered by: REBECA Flores on 12/01/24 09:28 Dose Route Admin Location Dispensed Lot Number Expiration Date [facility] Coater Helper 0.5 mL IM Left Deltoid 0.5 mL [id number] 10/13/25 [employer]ER Total Dispensed Waste 0.5 mL 0 % VIS Given Date VIS Provided VIS Publication Date 12/01/24 Single Vaccine 24 Eligibility Eligibility Date Funding Source Not [facility] Eligible 12/01/24 Private Coding Level of Care Code Est Pt Level 4 (86290) Est Pt Prev Care >65y(64304) Diagnoses Physical exam Z00.00 Chronic congestive heart failure, unspecified heart failure type I50.9 Heart failure chronicity: chronic Heart failure type: unspecified Essential hypertension I10 Urge urinary incontinence N39.41 Adrenal adenoma, unspecified laterality D35.00 Laterality: unspecified laterality Right hemiparesis G81.91 Simple chronic bronchitis J41.0 COPD type: chronic bronchitis Chronic bronchitis type: simple Additional Codes SULAIMAN-7 Assessment Billing - SULAIMAN-7 Assessment Tool: SULAIMAN-7 Assessment 42687 ([id number]) PHQ-9 - 12055 - PHQ-9 Billing: Yes ([id number]) Time Spent (min) 36 Assessment & Plan Assessment & Plan (1) Physical exam: Code(s): Z00.00 - Encounter for general adult medical examination without abnormal findings Category: Medical (2) CHF (congestive heart failure): Code(s): I50.9 - Heart failure, unspecified Category: Medical Qualifiers: Heart failure chronicity: chronic Heart failure type: unspecified Qualified Code(s): I50.9 - Heart failure, unspecified (3) Essential hypertension: Code(s): I10 - Essential (primary) hypertension Category: Medical (4) Urge urinary incontinence: Code(s): N39.41 - Urge incontinence Category: Medical (5) Adrenal adenoma: Code(s): D35.00 - Benign neoplasm of unspecified adrenal gland Category: Medical Qualifiers: Laterality: unspecified laterality Qualified Code(s): D35.00 - Benign neoplasm of unspecified adrenal gland (6) Right hemiparesis: Code(s): G81.91 - Hemiplegia, unspecified affecting right dominant side Category: Medical (7) COPD (chronic obstructive pulmonary disease): Code(s): J44.9 - Chronic obstructive pulmonary disease, unspecified Category: Medical Qualifiers: COPD type: chronic bronchitis Chronic bronchitis type: simple Qualified Code(s): J41.0 - Simple chronic bronchitis Plan Plan Patient was informed and verbally consented to the use of an ambient scribe for clinic note documentation during this visit. 1. Encounter for general adult medical examination without abnormal findings Z00.00 Preventative care measures include colon cancer screening with a stool test, mammography, bone densitometry, and vaccinations for pneumonia and influenza. 2. Essential (primary) hypertension I10 The patient has essential hypertension, which is currently poorly controlled due to non-adherence to medication. A plan to reassess blood pressure in three weeks after ensuring medication adherence was discussed. 3. Heart failure, unspecified I50.9 HCC 85 The patient is on carvedilol and furosemide for heart failure management. A repeat echocardiogram is planned to assess cardiac function. 4. Hemiplegia, unspecified affecting right dominant side G81.91 HCC 103 The patient has right hemiparesis secondary to a previous stroke, resulting in wheelchair dependence. Physical therapy is being considered to improve mobility and functional status. 5. Chronic obstructive pulmonary disease, unspecified J44.9 HCC 111 The patient has a history of COPD, with no recent exacerbations reported. Continued monitoring and management were discussed. 6. Benign neoplasm of unspecified adrenal gland D35.00 The patient has a history of an adrenal adenoma, previously monitored by Dr. Caldwell. No current interventions were discussed during this visit. Orders: Orders Vitamin B12 and Folate Today E53.8 - Deficiency of other specified B group vitamins IRON PROFILE Today D64.9 - Anemia, unspecified MM tomosynthesis screening BI Today Z12.31 - Encounter for screening mammogram for malignant neoplasm of breast PT Evaluation and Treatment Today G81.91 - Hemiplegia, unspecified affecting right dominant side CA echo transthoracic complete Today I50.9 - Heart failure, unspecified CT abdomen pelvis wo/w IV con Today D35.00 - Benign neoplasm of unspecified adrenal gland Pneumococcal 20 Immunization Today Z23 - Encounter for immunization Lipid Panel Today E78.5 - Hyperlipidemia, unspecified Vitamin D 25-OH Total Today E55.9 - Vitamin D deficiency, unspecified Complete Blood Count Auto Diff Today D64.9 - Anemia, unspecified Comprehensive [place]. Panel Fast Today I50.9 - Heart failure, unspecified NT Pro B Type Natriuretic Pept Today I50.9 - Heart failure, unspecified XR DEXA axial skeleton Today Z78.0 - Asymptomatic menopausal state Metanephrines, Plasma Today D35.00 - Benign neoplasm of unspecified adrenal gland Influenza [id number] Immunization Today Z23 - Encounter for immunization Referrals Cologuard Test Z12.11 - Encounter for screening for malignant neoplasm of colon, Z12.12 - Encounter for screening for malignant neoplasm of rectum Pulmonology Referral J41.0 - Simple chronic bronchitis Cardiology Referral I50.9 - Heart failure, unspecified Medications: Refilled furosemide 20 mg PO DAILY 90 tabs 3RF 90 days hydralazine 25 mg PO TID 270 tabs 3RF 90 days ipratropium-albuterol 0.5 mg-3 mg(2.5 mg base)/3 mL 3 mL inhalation Q6H 90 mL 6RF 30 days isosorbide mononitrate ER 30 mg PO QAM 90 tabs 1RF 90 days polyethylene glycol 3350 17 grams PO DAILY PRN 30 ea 2RF constipation 30 days amlodipine 10 mg PO DAILY 90 tabs 3RF 90 days aspirin 81 mg PO DAILY 90 tabs 3RF 90 days atorvastatin 20 mg PO DAILY 90 tabs 3RF 90 days E78.5 - Hyperlipidemia, unspecified carvedilol (Coreg) 12.5 mg PO BID 180 tabs 3RF 90 days underpads (Certainty Underpads) Use 1 to 2 Underpads at bedtime 150 ea 11RF N39.41 - Urge incontinence [wipes] As directed 100 ea 11RF To clean her after urination or bowel movement N39.41 - Urge incontinence [adult diapers briefs] As directed 240 ea 11RF N39.41 - Urge incontinence
== END 2024-12-01 09:32 | disposition home or self-care (01) ==
LOC: HO.HMCH 08:35
PROVIDERS: PCP Internal Medicine; Visit Provider Internal Medicine
DX: Z00.00 Encounter for general adult medical examination without abnormal findings (principal); I11.0 Hypertensive heart disease with heart failure; I50.9 Heart failure, unspecified; G81.91 Hemiplegia, unspecified affecting right dominant side; J41.0 Simple chronic bronchitis; N39.41 Urge incontinence; D35.00 Benign neoplasm of unspecified adrenal gland; Z23 Encounter for immunization

== ENCOUNTER → 2024-12-01 08:34 | Outpatient (BNVA) | payer MEDICARE, MEDICAID, SELFPAY | PROVIDERS: PCP Internal Medicine; Visit Provider Internal Medicine | DX: Z00.00 Encounter for general adult medical examination without abnormal findings (principal); I11.0 Hypertensive heart disease with heart failure; I50.9 Heart failure, unspecified; I69.351 Hemiplegia and hemiparesis following cerebral infarction affecting right dominant side; N39.41 Urge incontinence; D35.00 Benign neoplasm of unspecified adrenal gland; J41.0 Simple chronic bronchitis; Z23 Encounter for immunization | CPT/HCPCS: 90471; 90472; 90656; 90677; 96127; 99212; 99397 ==

== ENCOUNTER → 2024-12-31 11:07 | Outpatient (REF) | payer MEDICARE, MEDICAID, SELFPAY ==
--- OUTSIDE RECORDS SUMMARY | 2020-06-06 02:16 | XMS_ITS | Continuity of Care Document ---
Author Organization [facility] Address [address] [address] Phone Care Team Providers Care Fire Official Name Role Phone Kirstin MAYNARD, Martha Unavailable Unavailable Allergies, Adverse Reactions, Alerts Substance Reaction Status Criticality No Known Allergies Active No Inform ation Medications Medication Instructions Dosage Effective Dates (start - stop) Status Comments polyethylene glycol 3350 17 gram oral powder packet take 1 packet by oral route every day as needed for constipation, mixed with 8 oz. water, juice, soda, coffee or tea - Active Natural Tears (PF) 0.1 %-0.3 % drops in a dropperette Instill one drop to each eye up to 4x/day as neeeded for redness/irritation as needed - Active amlodipine 5 mg tablet take 1 tablet by oral route every day 5 MG - Active aspirin 81 mg ORAL TABLET Take one tablet by mouth daily. - Active carvedilol 12.5 mg tablet take 1 tablet by oral route 2 times every day with food 12.5 MG - Active furosemide 20 mg tablet take 1 tablet by oral route every day 20 MG - Active isosorbide mononitrate ER 30 mg tablet,extended release 24 hr take 1 tablet by oral route every day in the morning 30 MG - Active Advance Directives Directive Yes / No Effective Date File Name No Information Encounters Encounter Description Practice Location Reason(s) For Visit Diagnoses Date Provider [facility], [address] [address], [place], [place], [id number], [place] tel:[phone] [place] No Information Kirstin Thomas. [address] [place], [id number] . tel:[phone] [facility], [address], [id number], tel:[phone] [place] Encounter for nutritional assessment Akira Chavez. [address], [place], [place], [address]. tel:[phone] [facility], [address], [id number], [place] tel:[phone] [place] No Information Kirstin Thomas. [address] [place], [id number] . tel:[phone] [facility], [address], [id number], [place] tel:[phone] [place] PEE (chief complaint) Adult general medical examVitamin D deficiencyHypertension , unspecified typeStable anginaAphasia following cerebral infarctionHemiplegia and hemiparesis following cerebral infarction affecting right dominant sideBowel and bladder incontinenceFull incontinence of fecesMemory deficit due to and not concurrent with cerebrovascular accident (CVA)Alcohol dependence, in remission Kirstin Thomas. [address] [place], [id number] . tel:[phone] [facility], [address], [id number], tel:[phone] [place] Intake (chief complaint) Encntr for general adult medical exam w/o abnormal findingsEncounter for screening for respiratory tuberculosisHistory of cerebrovascular accident (CVA) with residual deficitAphagiaAphasiaH ypertension, unspecified typeStable angina Kirstin Thomas. [address] [place], [id number] . tel:[phone] Family History Family Member Type Diagnosis Age At Onset No Information Payers Payer name Insurance type Covered alliance party ID Authoriza tion(s) No Information Social History Type Description Quantity Date Captured Comments Sex Female Smoking Status No Information Chief Complaint And Reason For Visit No Information Plan Of Treatment Date Type Action Status Referral Ordered: Speech Therapy (related to Aphagia) ordered Referral Ordered: Occupational Therapy (related to Hemiparesis as late effect of cerebrovascular accident (CVA)) ordered Referral Ordered: Referrals: Cardiology. Consult Appointment date/timeframe: 07/24/2019 ordered Referral Referred To: Speech Therapy Ordered: Referrals: Speech Therapy. Evaluate and treat ordered Referral Ordered: ELECTROCARDIOGRAM COMPLETE ordered Referral Referred To: Physical Therapy Ordered: Referrals: Physical Therapy. Evaluate and treat ordered Referral Ordered: CT HEAD/BRAIN W/O DYE Appointment date/timeframe: 07/02/2019 ordered Referral Ordered: ECHO EXAM OF THE HEART Appointment date/timeframe: 07/30/2019 ordered Referral Referred To: Occupational Therapy Ordered: Referrals: Occupational Therapy. Evaluate and treat ordered History Of Present Illness Encounter Date Complaint History Of Prese nt Illness PEBriana Otoniel ward is a 63 year old female here for her Post Enrollment Evaluation and review of chronic Conditions. All chronic conditions addressed in this assessment are stable unless otherwise indicated. She is here with her daughter Bibiana Clements. Divehi speaking advanced practice nurse psychotherapist is ANA[place] Mendoza.Otoniel lives with her daughter Bibiana and her family in the community in [place], [place] since January 2019.No medical records available at the time of this visit despite personal phone calls and fax requests made by this provider.NKDAPharmacy is [facility] in [place], [facility] PCP: Dr. Abel Prado [address] [place] [address] in [facility]-releases signed so we can request medical records.[facility] stay when in 12/2018 for elevated blood glucoseNo recently reported falls.Immunizations:No medical records available at the time of this visit.Healthcare proxy completed 04/21/2019 lists her daughter Bibiana Clements as her primary healthcare agent and her son-in-law Omar Beckman as her alternate health care agent. HCP will be activated MoCa 09/02. [place] [facility] document was reviewed for intent and content. Plan will be for family to discuss and we will plan for a f/u visit to answer questions and potentially complete the document.Goals for the next 6 months: better, more consistent health care, working with OT/PT for more functional independence Intake Otoniel ward is a 63 year old female here for her initial Intake visit. She is here with her daughter Bibiana Clements. Divehi speaking advanced practice nurse psychotherapist Devonte lives with her daughter Bibiana and her family in the community in [place], [place] since january 2019NKDAPharmacy is [facility] in [place], MAPCP: Dr. Abel Prado [address] in [facility]-releases singed so we can request medical records.Cardilology: [place]-does not remember the nameHospital stay when in [place] 12/2018 for elevated blood glucoseNo recently reported falls.Otoniel is a max assist for transfers, ADLs s/p CVA right sided weakness and aphasiaOtoniel reports no concerns with her vision, hearing singh swallowing.Can feed herself if items are finger foods, needs assistance otherwiseIncontinent of bladder and bowel. Otoniel requires assistance with dressing , bathing and medication management. Otoniel is non-ambulatory.No supplemental oxygen, no C-PAP, no pacemakerShe does have a WCNo tobacco useFormer alcohol use, greater than 10 years agoOtoniel Perez is a 63 [facility] who would benefit from the coordinated services of a PACE program. She and her family are interested medical management, medication management, social research assistant, transportation, therapy and socialization at the day program (3 days a week). Will bring to IDT for approval pending acceptance by [employer] Instructions Date Instruction Additional Infor mation per family report. L ast use 10 years ago. No changes. WIll continue to support remission and monitor for any changes. Related to Alcohol dependence, in remission s/p CVA 2009 with re sidual aphagia and right-sided weakness. MoCa 09/02 today. HCP will be activated. Unabe to assess for dementia in particular. PAIN-AD is zero. Incontinent of vladder and bowel, dependent in all ADLs. No behaviors reproted by the ppt's daughter. Will continue to support and monitor for changes. Related to Memory deficit due to and not concurrent with cerebrovascular accident (CVA) s/p CVA ~ 10 years a go. Ppt's daughter reports that the ppt is unaware of her need to urinate or deficate. Dependent for all ADLs, has incontinence products. Having OT and PT evaluate to create a plan of care for ficntional improvemen/maintenance. Related to Full incontinence of feces s/p CVA ~ 10 years a go. Ppt's daughter reports that the ppt is unaware of her need to urinate or deficate. Dependent for all ADLs, has incontinence products. Having OT and PT evaluate to create a plan of care for ficntional improvemen/maintenance. Related to Bowel and bladder incontinence Will provide informa tion to the daughter for vision evaluation and dental for routine care Related to Adult general medical exam pre-enrollment recor ds for CVA 10 years ago with expressive aphagia and residual right-sided weakness. Non-ambulatory, No speech, has receptive ability and follows commands. BP managed. Labs to determine lipid level. Referral for therapy to determine plan of care for function.. Related to Hemiplegia and hemiparesis following cerebral infarction affecting right dominant side Report of CVA approx imately 10 years ago with residual right-sided weakness and aphasia. Ppt has reseptive language. She is non-ambulatory, incontinent of bladder and bowel and dependent for all ADLs. BP managed on amlodipine, crvedilol and furosemide. Labs ordered for baseline lipid levels. No changes at this time, will continue to monitor. Related to Aphasia following cerebral infarction has isosorbide monon itrate ER 30 mg daily on med profile. No reprot of chest painor pressure at the time of this visit. ECG obtained which shows a possible lateral infarct. Will plan for evaluation by cardiology Related to Stable angina taking amlodipine 10 mg and furosemide 20 mg daily. BP readings today are 140/70 sitting and 112/68 lying, ppt unable to stand. Dtr reports increase in carvedilol to 12.5 mg twice dialy. Updated med profile, will continue to monitor for changes. Related to Hypertension, unspecified type Labs to obtain basel ine information ordered today, results are ending. Non-ambulatory. no recent falls, no h.o fractures reported Related to Vitamin D deficiency pre family report CV A 2019 right hemiplegia Related to History of cerebrovascular accident (CVA) with residual deficit Assessments Type Assessment Date No Information
--- OUTSIDE RECORDS SUMMARY | 2020-06-06 02:16 | XMS_ITS | Continuity of Care Document ---
Author Organization [facility] Address [address] [address] Phone Care Team Providers Care Senior Account Representative Name Role Phone Kirstin MAYNARD, Martha Unavailable [...] Location Reason(s) For Visit Diagnoses Date Provider [facility], [address] [address], [place], [place], [id number], [place] tel:[phone] [place] No Information Kirstin Thomas. [address] [place], [id number] . tel:[phone] [facility], [address], [id number], tel:[phone] [place] Encounter for nutritional assessment Akira Chavez. [address], [place], [place], [address]. tel:[phone] [facility], [address], [id number], [place] tel:[phone] [place] No Information Kirstin Thomas. [address] [place], [id number] . tel:[phone] [facility], [address], [id number], [place] tel:[phone] [place] PEE (chief complaint) Adult general medical examVitamin D deficiencyHypertension , unspecified typeStable anginaAphasia following cerebral infarctionHemiplegia and hemiparesis following cerebral infarction affecting right dominant sideBowel and bladder incontinenceFull incontinence of fecesMemory deficit due to and not concurrent with cerebrovascular accident (CVA)Alcohol dependence, in remission Kirstin Thomas. [address] [place], [id number] . tel:[phone] [facility], [address], [id number], tel:[phone] [place] Intake (chief complaint) Encntr for general adult medical exam w/o abnormal findingsEncounter for screening for respiratory tuberculosisHistory of cerebrovascular accident (CVA) with residual deficitAphagiaAphasiaH ypertension, unspecified typeStable angina Kirstin Thomas. [address] [place], [id number] . tel:[phone] Family History Family Member Type Diagnosis Age [...] is here with her daughter Bibiana Clements. Nepali speaking game bird farmer is [place] Mendoza.Otoniel lives with her daughter Bibiana and her family in the community in [place], [place] since January 2019.No medical records available at the time of this visit despite personal phone calls and fax requests made by this provider.NKDAPharmacy is [facility] in [place], [facility]CP: Dr. Abel Prado [address] [place] [address] in [facility]-releases signed so we can request medical records.[facility] nameHospital stay when in 12/2018 for elevated blood glucoseNo recently reported falls.Immunizations:No medical records available at the time of this visit.Healthcare proxy completed 04/21/2019 lists her daughter Bibiana Clements as her primary healthcare agent and her son-in-law Omar Beckman as her alternate health care agent. HCP will be activated MoCa 09/02. [place] [facility] document was reviewed for intent and content. [...] is here with her daughter Bibiana Clements. Nepali speaking game bird farmer Devonte lives with her daughter Bibiana and her family in the community in [place], [place] since january [address]NKDAPharmacy is [facility] in [place], MAPCP: Dr. Abel Prado [address] in [facility]-releases singed so we can request medical records.Cardilology: [place]-does not remember the nameHospital stay when in [place] 12/2018 for elevated blood glucoseNo recently reported [...] a 63 [facility] who would benefit from the coordinated services of a PACE program. She and her family are interested medical management, medication management, social sciences chair, transportation, therapy and socialization at the day program (3 days a week). Will bring to IDT for approval pending acceptance by [employer] Instructions Date Instruction Additional Infor mation per [...]
--- OUTSIDE RECORDS SUMMARY | 2020-06-06 02:16 | XMS_ITS | Continuity of Care Document ---
Author Organization [facility] Address [address] [address] Phone Care Team Providers Care Belt Fixer Name Role Phone Kirstin MAYNARD, Martha Unavailable [...] Location Reason(s) For Visit Diagnoses Date Provider [facility], [address] [address], [place], [place], [id number], [place] tel:[phone] [place] No Information Kirstin Thomas. [address] [place], [id number] . tel:[phone] [facility], [address], [id number], tel:[phone] [place] Encounter for nutritional assessment Akira Chavez. [address], [place], [place], [address]. tel:[phone] [facility], [address], [id number], [place] tel:[phone] [place] No Information Kirstin Thomas. [address] [place], [id number] . tel:[phone] [facility], [address], [id number], [place] tel:[phone] [place] PEE (chief complaint) Adult general medical examVitamin D deficiencyHypertension , unspecified typeStable anginaAphasia following cerebral infarctionHemiplegia and hemiparesis following cerebral infarction affecting right dominant sideBowel and bladder incontinenceFull incontinence of fecesMemory deficit due to and not concurrent with cerebrovascular accident (CVA)Alcohol dependence, in remission Kirstin Thomas. [address] [place], [id number] . tel:[phone] [facility], [address], [id number], tel:[phone] [place] Intake (chief complaint) Encntr for general adult medical exam w/o abnormal findingsEncounter for screening for respiratory tuberculosisHistory of cerebrovascular accident (CVA) with residual deficitAphagiaAphasiaH ypertension, unspecified typeStable angina Kirstin Tohmas. [address] [place], [id number] . tel:[phone] Family History Family Member Type Diagnosis Age At Onset No Information Payers Payer name Insurance type Covered republican ID Authoriza tion(s) No Information Social History [...] is here with her daughter Bibiana Clements. German speaking supervisor mattress and boxsprings is [place] Mendoza.Otoniel lives with her daughter Bibiana and her family in the community in [place], [place] since January 2019.No medical records available at the time of this visit despite personal phone calls and fax requests made by this provider.NKDAPharmacy is [facility] in [place], [facility]: Dr. Abel Prado [address] [place] [address] in [facility]-releases signed so we can request medical records.[facility] stay when in 12/2018 for elevated blood glucoseNo recently reported falls.Immunizations:No medical records available at the time of this visit.Healthcare proxy completed 04/21/2019 lists her daughter Bibiana Clements as her primary healthcare agent and her son-in-law Omar Beckman as her alternate health care agent. HCP will be activated MoCa 09/02. [place] [facility] document was reviewed for intent and [...] is here with her daughter Bibiana Clements. German speaking supervisor mattress and boxsprings Devonte lives with her daughter Bibiana and her family in the community in [place], [place] since january [address]NKDAPharmacy is [facility] in [place], MAPCP: Dr. Abel Prado [address] in [facility]-releases singed so we can request medical records.Cardilology: [place]-does not remember the nameHospital stay when in [place] 12/2018 for elevated blood glucoseNo recently reported [...] a 63 [facility] who would benefit from the coordinated services of a PACE program. She and her family are interested medical management, medication management, social media marketer, transportation, therapy and socialization at the day program (3 days a week). Will bring to IDT for approval pending acceptance by [employer] Instructions Date Instruction Additional Infor mation per [...]
--- NOTE | 2024-12-31 11:09 | CA_ITS ---
Transthoracic Echocardiogram Patient (Last, First, Middle): Zohra Carey, Gender: Female Date of : 1955 Age: 69 Procedure Date: 12/31/2024 Procedure Type: Transthoracic Echocardiogram Location: OP Height: 152.4 cm Weight: 49.9 kg BSA: 1.45 m2 Heart Rate: bpm BP: 150 / 90 mmHg Installation Specialist: RUTH Referring MD: April Zelaya MD Symptoms: I50.9 - Heart failure, unspecified Study Quality: Technically Difficult ECG Rhythm: Sinus Conclusions: - The left ventricular systolic function is hyperdynamic. The visually estimated ejection fraction is >70%. - There is severe septal asymmetric hypertrophy. - There is moderate mitral valve regurgitation. Possibly related to anterior mitral leaflet prolapse but not well seen. Findings Procedure Information The study quality is limited by the patients inability to tolerate the test and an uncooperative patient. Left Ventricle Normal left ventricular cavity size. There is mildly increased left ventricular wall thickness. The left ventricular systolic function is hyperdynamic. The visually estimated ejection fraction is >70%. There is no evidence of regional wall motion abnormalities. Evidence suggests grade I (mild) diastolic dysfunction. There is severe septal asymmetric hypertrophy. LV peak GLS -11.2% (diminished). Right Ventricle Normal right ventricular cavity size and systolic function. Atria The left atrium is severely dilated. The right atrium is normal in size. Aortic Valve The aortic valve was not well visualized. There is no aortic valve stenosis. There is no aortic valve regurgitation. Mitral Valve There is moderate mitral valve regurgitation. The mitral regurgitation jet is directed posteriorly. There is no mitral valve stenosis. Probable anterior mitral prolapse. Pulmonic Valve The pulmonic valve was not well visualized. Tricuspid Valve There is trace tricuspid valve regurgitation. There is no evidence of pulmonary hypertension. Great Vessels The asc aorta is normal in size. Venous The inferior vena cava is normal in size and collapses greater than 50% with inspiration. Pericardium/Pleural There is no evidence of pericardial effusion. Prior Study Comparison Changes noted compared to prior study dated: 03/01/2020. Progression of mitral regurgitation. Measurements 2D Linear Measurements IVSd: 1.67 0.6-0.9/0.6-1.0 cm LVIDd: 3.66 3.9-5.3/4.2-5.9 cm LVIDd Index: 2.52 2.4-3.2/2.2-3.1 cm/m2 LVIDs: 1.76 2.0-3.6 cm LVPWd: 1.25 0.7-1.1 cm LA Diam: 4.10 2.7-3.8/3.0-4.0 cm LAIDs Index: 2.83 1.5-2.3 cm/m2 LV Mass: 245.30 67-162/88-224 g LV Mass Index: 169.17 43-95/49-115 g/m2 LVOT Diam: 1.90 3.0+(-)1.3 cm Mitral Valve MV VTI: 0.29 MV Pk Lit: 1.75 MV Mn Lit: 1.17 MV Pk Grad: 12.00 MV Mn Grad: 6.00 MV Pk E: 0.76 MV PK A: 1.58 MV Decel Time: 147.00 E/A: 0.50 E'Lateral: 5.66 E'Medial: 3.81 E/E' Med: 19.90 E/E' Lat: 13.40 PHT: 43.00 MVA PHT: 5.12 MVA Continuity: 2.14 Decel [place]: 5.17 MR VTI: 1.64 Aortic Valve AoV Pk Lit: 1.38 AoV Mn Lit: 1.06 AoV VTI: 0.28 AoV Pk Grad: 8.00 Aov Mn Grad: 5.00 DANIELA Cont.VTI: 2.23 LVOT LVOT Pk Lit: 1.22 LVOT Mn Lit: 0.86 LVOT VTI: 0.22 LVOT Pk Grad: 6.00 LVOT Mn Grad: 3.00 LVOT Diam: 1.90 LVOT Area: 2.84 Diastolic Function MV Pk E: 0.76 MV Pk A: 1.58 E/A: 0.50 E'Medial: 3.81 E/E' Med: 19.90 E' Laterial: 5.66 E/E' Lat: 13.40 Right Ventricle TAPSE (mm): 25.60 TVS' Lit: 16.50 Tricuspid Valve RA Press: 3.00 Great Vessels Aorta Sinus of Valsalva: 2.99 2.0-3.5 cm Ao Asc: 3.20 2.1-3.4 cm Pulmonary Veins Pulm Vein S/D 1.80 Updated in Other Vendor System with Status of Final Anthony Gregg MD electronically signed on 01/01/2025 10:20:01 AM with status of Final
--- OUTSIDE RECORDS SUMMARY | 2024-12-31 21:56 | XMS_ITS | Clinical Summary ---
Author Organization [facility] Address [address] [place] [address] Care Team Providers Care Mixer Machine Feeder Name Role Phone April Dowling MD Primary Care Provid er Social History Tobacco Use Types Packs/Day Years Used Date Smoking Tobacco: Never Assessed Sex and Gender Information Value Date Recorded Sex Assigned at Not on file Gender Identity Not on file Sexual Orientation Not on file Plan of Treatment Health Maintenance Due Date Last Done Comments Hepatitis C Screening 1955 COVID-19 Vaccine (#1) 04[birth year]03/1956 Depression Screening 1967 Preventative Health Evaluation 10/01/1973 DTap / Tdap / Td (1 - Tdap) 10/01/1974 Colon Cancer Screening (Colonoscopy) 10/01/2000 Breast Cancer Screening (Mammogram) 10/01/2005 Shingrix-Zoster Vaccine (1 of 2) 10/01/2005 Fall Risk Assessment 10/01/2020 Osteoporosis Screening (DEXA Scan) 10/01/2020 Pneumococcal Vaccine (1 of 1 - PCV) 10/01/2020 Influenza Vaccine (#1) 2024 RSV Adult > 60+ Yrs or Pregn ant (1 - 1-dose 75+ series) 10/01/2030 Hepatitis B Vaccines Aged Out No long er eligible based on patient's age to complete this topic RSV Ped < 20 months Aged Out No longe r eligible based on patient's age to complete this topic Care Teams Mixer Machine Feeder Relationship Specialty Start Date End Date April Dowling MD [address] [place] [address] , [address] [facility] D/B/A: [facility] [place] [id number] PCP - General Internal Medicine 04/13/20
== END ==
LOC: HO.CARD 11:07
PROVIDERS: PCP Internal Medicine; Visit Provider Internal Medicine
DX: I50.9 Heart failure, unspecified (principal)
CPT/HCPCS: 93306

== ENCOUNTER → 2024-12-31 11:09 | Outpatient (BNV) | payer MEDICARE, MEDICAID, SELFPAY | PROVIDERS: PCP Internal Medicine; Visit Provider Internal Medicine | DX: I51.89 Other ill-defined heart diseases (principal); I51.7 Cardiomegaly; I34.0 Nonrheumatic mitral (valve) insufficiency | CPT/HCPCS: 93306; 93356 ==